=== PATIENT | female | born 1945 | race Hispanic/Latino ===

== ENCOUNTER → 2019-03-18 | Day surgery (SDC) | payer MEDICARE, OTHER ==
[2019-03-14 14:59] LABS: BASOPHILS % 0.4 % (0.0-1.0); EOSINOPHILS # (AUTO) 0.1 (0.0-0.4); EOSINOPHILS % 1.5 % (0.0-6.0); HEMATOCRIT 35.5 % (34.2-44.1); HEMOGLOBIN 11.5 g/dL (12.0-16.0); LYMPHOCYTES # (AUTO) 1.2 (1.0-3.2); LYMPHOCYTES % 15.6 % (18.0-39.1); MEAN CORPUSCULAR HEMOGLOBIN 28.6 pg (28-32); MEAN CORPUSCULAR HGB CONC 32.4 g/dL (31-35); MEAN CORPUSCULAR VOLUME 88.3 fL (81-99); MONOCYTES # (AUTO) 0.5 (0.2-0.8); MONOCYTES % 7.1 % (4.4-11.3); NEUTROPHILS # (AUTO) 5.5 (2.1-6.9); NEUTROPHILS % 75.1 % (38.7-80.0); PLATELET COUNT 246 x10e3/uL (140-360); RED BLOOD COUNT 4.02 x10e6/uL (3.6-5.1); RED CELL DISTRIBUTION WIDTH 14.7 % (11.7-14.4)
[~2019-03-18] MED LIST: ASPIR 8181 MG PO; ATORVASTATIN CA20 MG PO; BACLOFEN PO; BACLOFEN10 MG PO; CARVEDILOL12.5 MG PO; CARVEDILOL3.125 MG PO; CLOPIDOGREL75 MG PO; FAMOTIDINE20 MG PO; FENTANYL CITRATE/PF 100MCG/2 ML INJ ONE; LANTUS 3ML100 UNITS/ INJ; MELOXICAM7.5 MG PO; METFORMIN HCL500 MG PO; MIDAZOLAM HCL 2 MG/2 ML VIAL ONE; MYRBETRIQ; NEXIUM40 MG PO; NITROGLYCERIN0.4 MG SL; NOVOLOG100 UNIT/1 INJ; OLMESARTAN MEDOXOMIL PO; PROPOFOL IV EMULSION 10 MG/ML 50 ML VIAL ONE; SERTRALINE HCL50 MG PO
--- OUTSIDE RECORDS SUMMARY | 2019-03-18 07:21 | XMS REPORT | Continuity of Care Document ---
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 [facility], [facility] Curiel, [facility] CORONARY ARTERY DISEASE, S/P PTCA Active 07/31/2014 Condition 02/02/2015 [facility] ABN STRESS TEST Active 07/07/2014 [facility] ANGINA - STABLE Active 06/10/2014 Condition 02/02/2015 [facility] DIABETES MELLITUS - TYPE II - UNCONTROLLED Active 06/10/2014 Condition 02/02/2015 [facility] HYPERTENSION - BENIGN ESSENTIAL Active 06/10/2014 Condition 02/02/2015 [facility] Angina1 Active 06/10/2014 Problem 03/02/2019 Data migrated from [employer] on 02/16/15. [facility], CELESTE Curiel, [facility] Benign hypertension2 Active 06/10/2014 Problem 03/02/2019 Data migrated from [employer] on 02/16/15. [facility], CELESTE Curiel,REINA [facility] Type II diabetes mellitus uncontrolled4 Active 06/10/2014 Problem 03/02/2019 Data migrated from [employer] on 02/16/15. [facility],REINA Curiel,[facility] Angina associated with type 2 diabetes mellitus Resolved Problem 03/02/2019 [facility], CELESTE Curiel, [facility] Atypical angina Active Problem 03/02/2019 [facility], CELESTE [place], [facility] Coronary artery disease Active Problem 03/02/2019 [facility], CELESTE [place], [facility] Diabetes mellitus Active Problem 03/02/2019 [facility], OPID [facility], [facility] Diabetes Resolved Problem 03/02/2019 [facility], DEBBYD [facility], [facility] Hypercholesterolemia Active Problem 03/02/2019 [facility], OPID [facility], [facility] Hyperlipidemia Resolved Problem 03/02/2019 [facility], CELESTE [place], [facility] Hypertension Active Problem 03/02/2019 [facility], CELESTE [place], [facility] Morbid obesity Active Problem 03/02/2019 [facility], CELESTE Curiel, [facility] Osteoarthritis Resolved Problem 03/02/2019 [facility], CELESTE [place], [facility] ABN CARDIOVASC STUDY NEC Active [facility] Medications Medication Details Route Status Patient Instructions Ordering Provider Order Date Source olmesartan 40 mg oral tablet 40 mg=1 tab, PO, Daily, # 30 tab, 0 Refill(s) Active 08/12/2018 [facility] Metformin hydrochloride 500 MG Oral Tablet 500 mg=1 tab, PO, BID, 0 Refill(s) Active 08/12/2018 [facility] carvedilol 12.5 mg oral tablet See Instructions, # 180 tab, TAKE 1 TABLET BY MOUTH TWICE DAILY, Pharmacy: [id number] No Longer Active 07/10/2018 [facility] carvedilol 12.5 mg oral tablet See Instructions, # 180 tab, Refill(s) 2, NEREIDA ANN TABLETA ORALMENTE DOS VECES AL JOSE, Pharmacy: [facility] Active 01/11/2018 [facility] atorvastatin 40 mg oral tablet 40 mg=1 tab, PO, Bedtime, # 30 tab, 0 Refill(s) Active 12/31/2017 [facility] Caltrate 600 + D 1 tab, PO, BID, 0 Refill(s) Active 12/31/2017 [facility] Metformin hydrochloride 1000 MG Oral Tablet 1,000 mg=1 tab, PO, BID-Meals, # 30 tab, 0 Refill(s) Active 12/31/2017 [facility] cinnamon 500 mg oral capsule 1,000 mg=2 cap, PO, BID, # 100 cap, 0 Refill(s) Active 12/31/2017 [facility] DULoxetine 30 mg oral delayed release capsule 30 mg=1 cap, PO, Daily, # 30 cap, 0 Refill(s) Active 12/31/2017 [facility] Glucosamine 1,500 mg, Route: PO, Daily, Dosing Weight 91.364, kg, Start date: 12/12/14 9:00:00, Duration: 30 day, Stop date: 01/10/15 9:00:00 No Longer Active 12/12/2014 [facility] Nexium 40 mg, Route: PO, Drug form: ECCAP, Daily, Dosing Weight 91.364, kg, Start date: 12/12/14 9:00:00, Duration: 30 day, Stop date: 01/10/15 9:00:00 No Longer Active 12/12/2014 [facility] Colchicine 0.6 MG Oral Tablet [Colcrys] 0.6 mg, 1 tab, Route: PO, Drug form: TAB, Daily, Dosing Weight 91.364, kg, Start date: 12/12/14 9:00:00, Duration: 30 day, Stop date: 01/10/15 9:00:00 No Longer Active 12/12/2014 [facility] clopidogrel 75 mg, 1 tab, Route: PO, Drug form: TAB, Daily, Dosing Weight 91.364, kg, Start date: 12/12/14 9:00:00, Duration: 30 day, Stop date: 01/10/15 9:00:00Notes: (Same As: Plavix) No Longer Active 12/12/2014 [facility] Aspirin 81 mg, 1 tab, Route: PO, Drug form: CHEWTAB, Daily, Dosing Weight 91.364, kg, Start date: 12/12/14 9:00:00, Duration: 30 day, Stop date: 01/10/15 9:00:00Notes: Take with food. No Longer Active 12/12/2014 [facility] Diovan 160 mg, 1 tab, Route: PO, Drug form: TAB, Daily, Dosing Weight 91.364, kg, Start date: 12/12/14 9:00:00, Duration: 30 day, Stop date: 01/10/15 9:00:00Notes: Same as Diovan No Longer Active 12/12/2014 [facility] Sertraline 50 mg, 1 tab, Route: PO, Drug form: TAB, Daily, Dosing Weight 91.364, kg, Start date: 12/12/14 9:00:00, Duration: 30 day, Stop date: 01/10/15 9:00:00Notes: (Same as: Zoloft) No Longer Active 12/12/2014 [facility] multivitamin with iron Route: PO, Drug Form: TAB, Dosing Weight 91.364, kg, Daily, Start date: 12/12/14 9:00:00, Duration: 30 day, Stop date: 01/10/15 9:00:00 No Longer Active 12/12/2014 [facility] multivitamin 1 tab, Route: PO, Drug Form: TAB, Dosing Weight 91.364, kg, Daily, Start date: 12/12/14 9:00:00, Duration: 30 day, Stop date: 01/10/15 9:00:00Notes: (Same as:Thera) Take with food. No Longer Active 12/12/2014 [facility] meloxicam 15 mg, 2 tab, Route: PO, Drug form: TAB, Daily, Dosing Weight 91.364, kg, Start date: 12/12/14 9:00:00, Duration: 30 day, Stop date: 01/10/15 9:00:00Notes: (Same as: Mobic) No Longer Active 12/12/2014 [facility] Loratadine 10 mg, 1 tab, Route: PO, Drug form: TAB, Daily, Dosing Weight 91.364, kg, Start date: 12/12/14 9:00:00, Duration: 30 day, Stop date: 01/10/15 9:00:00Notes: 1 hr before meals (Same as: Claritin) No Longer Active 12/12/2014 [facility] Protonix 40 mg, 1 tab, Route: PO, Drug form: ECTAB, Before Breakfast, Start date: 12/12/14 7:30:00, Duration: 30 day, Stop date: 01/10/15 7:30:00Notes: Tablet should not be chewed or crushed. (Same as: Protonix) No Longer Active 12/12/2014 [facility] Lantus Route: SUB-Q, Bedtime, Dosing Weight 91.364, kg, Start date: 12/11/14 21:00:00, Duration: 30 day, Stop date: 01/09/15 21:00:00 Inactive 12/12/2014 [facility] atorvastatin 20 mg, 1 tab, Route: PO, Drug form: TAB, Bedtime, Dosing Weight 91.364, kg, Start date: 12/11/14 21:00:00, Duration: 30 day, Stop date: 01/09/15 21:00:00Notes: (Same As: Lipitor) Inactive 12/12/2014 [facility] Levemir FlexPen 40 unit, 0.4 mL, Route: SUB-Q, Drug form: INJ, Bedtime, Start date: 12/11/14 21:00:00, Duration: 30 day, Stop date: 01/09/15 21:00:00Notes: Same as Levemir Do not hold insulin without contacting prescriber "single patient use only" Inactive 12/12/2014 [facility] Humalog 20 unit, Route: SUB-Q, BID, Dosing Weight 91.364, kg, Start date: 12/11/14 17:00:00, Duration: 30 day, Stop date: 01/10/15 9:00:00 Inactive 12/11/2014 [facility] carvedilol 3.125 mg, 1 tab, Route: PO, Drug form: TAB, BID, Dosing Weight 91.364, kg, Start date: 12/11/14 17:00:00, Duration: 30 day, Stop date: 01/10/15 9:00:00Notes: Give with food. (Same As: Coreg) Inactive 12/11/2014 [facility] NovoLOG FlexPen 20 unit, 0.2 mL, Route: SUB-Q, Drug form: SOLN, BID, Start date: 12/11/14 17:00:00, Duration: 30 day, Stop date: 01/10/15 9:00:00Notes: Roll in palms of hands gently; Do not shake vigorously. (Same as: NovoLOG) "single patient use only" Stable for 28 days at room temperature. Expires in days from Date Inactive 12/11/2014 [facility] Al hydroxide/Mg hydroxide/simethicone 200 mg-200 mg-20 mg/5 mL oral suspension 30 mL, Route: PO, Drug Form: SUSP, Dosing Weight 91.364, kg, Q12H, PRN Indigestion, Start date: 12/11/14 10:57:00, Duration: 30 day, Stop date: 01/10/15 10:56:00Notes: (aluminum hydroxide-magnesium hyd-simethicone [phone]/5ml 30 ml ud VINCE) Inactive 12/11/2014 [facility] Acetaminophen 325 MG / Hydrocodone Bitartrate 5 MG Oral Tablet 1 tab, Route: PO, Drug Form: TAB, Dosing Weight 91.364, kg, Q4H, PRN Pain Score 1-5, Start date: 12/11/14 10:57:00, Duration: 30 day, Stop date: 01/10/15 10:56:00Notes: (Same as: [facility] 325/5) Do not exceed 4gm/day of acetaminophen. Inactive 12/11/2014 [facility] Morphine 2 mg, 1 mL, Route: IVP, Drug form: INJ, Q15Min, Dosing Weight 91.364, kg, PRN Chest Pain, Start date: 12/11/14 10:57:00, Duration: 2 doses or times, Stop date: Limited # of timesNotes: (Same as:MORPh ine Sulfate) Inactive 12/11/2014 [facility] Nitroglycerin 0.4 mg, 1 tab, Route: SL, Drug form: TAB, Q5Min, Dosing Weight 91.364, kg, PRN Chest Pain, Start date: 12/11/14 10:57:00, Duration: 3 doses or times, Stop date: Limited # of timesNotes: (Same as:Nitr oquick, Nitrostat) "Do Not Crush" Sublingual tablet Inactive 12/11/2014 [facility] Acetaminophen 650 mg, 2 tab, Route: PO, Drug form: TAB, Q4H, Dosing Weight 91.364, kg, PRN Headache 1-5, Start date: 12/11/14 10:57:00, Duration: 30 day, Stop date: 01/10/15 10:56:00Notes: Do not exceed 4 gm/day. (Same as: Tylenol) Inactive 12/11/2014 [facility] Ondansetron 4 mg, 1 tab, Route: PO, Drug form: TAB, Q8H, Dosing Weight 91.364, kg, PRN Nausea & Vomiting, Start date: 12/11/14 10:57:00, Duration: 30 day, Stop date: 01/10/15 10:56:00Notes: (Same as: Zofran) Inactive 12/11/2014 [facility] Temazepam 15 mg, 1 cap, Route: PO, Drug form: CAP, Bedtime, Dosing Weight 91.364, kg, PRN Insomnia, Start date: 12/11/14 10:57:00, Duration: 30 day, Stop date: 01/10/15 10:56:00Notes: (Same As: Restoril) Inactive 12/11/2014 [facility] Sodium Chloride 0.154 MEQ/ML Injectable Solution 500 mL, Rate: 125 ml/hr, Infuse over: 4 hr, Route: IV, Dosing Weight 91.364 kg, Total Volume: 500, Start date: 12/11/14 10:57:00, Duration: 30 day, Stop date: 01/10/15 10:56:00 Inactive 12/11/2014 [facility] 8 HR Acetaminophen 650 MG Extended Release Tablet [Tylenol] 650 mg=1 tab, PO, PRN, 0 Refill(s) Active 12/11/2014 [facility] Iron-150 oral tablet 325 mg, PO, Daily, 0 Refill(s) Active 12/11/2014 [facility] Systane Eye Drops 1 gtt, BOTH EYES, Daily, 0 Refill(s) Active 12/11/2014 [facility] Glucosamine 1,500 mg, PO, Daily, 0 Refill(s) Active 12/11/2014 [facility] Humalog 20 unit, SUB-Q, BID, 0 Refill(s) Active 12/11/2014 [facility] Aspirin Low Dose 81 mg oral tablet =1 tab, PO, Daily, 0 Refill(s) Active 12/11/2014 [facility] Lantus 40 units, SUB-Q, Bedtime, 0 Refill(s) Active 12/11/2014 [facility] multivitamin 1 tab, PO, Daily, 0 Refill(s) Active 12/11/2014 [facility] meloxicam 15 mg oral tablet 15 mg=1 tab, PO, Daily, 0 Refill(s) Inactive 12/11/2014 [facility] loratadine 10 mg oral tablet 10 mg=1 tab, PO, Daily, 0 Refill(s) Active 12/11/2014 [facility] Esomeprazole 40 MG Enteric Coated Capsule [Nexium] 40 mg=1 cap, PO, Daily, 0 Refill(s) Active 12/11/2014 [facility] clopidogrel 75 mg oral tablet 75 mg=1 tab, PO, Daily, 0 Refill(s) Active 12/11/2014 [facility] valsartan 160 MG Oral Tablet [Diovan] 160 mg=1 tab, PO, Daily, 0 Refill(s) Active 12/11/2014 [facility] Colchicine 0.6 MG Oral Tablet [Colcrys] 0.6 mg=1 tab, PO, Daily, 0 Refill(s) Active 12/11/2014 [facility] carvedilol 3.125 mg oral tablet 3.125 mg=1 tab, PO, BID, 0 Refill(s) Active 12/11/2014 [facility] sertraline 50 mg oral tablet 50 mg=1 tab, PO, Daily, 0 Refill(s) Active 12/11/2014 [facility] atorvastatin 20 mg oral tablet 20 mg=1 tab, PO, Bedtime, 0 Refill(s) Active 12/11/2014 [facility] Acetaminophen 300 MG / Hydrocodone Bitartrate 5 MG Oral Tablet [Vicodin 5/300] 1 tab, PO, PRN, 0 Refill(s) Active 12/11/2014 [facility] CLOPIDOGREL BISULFATE 75 MG TABS Take 4 tablets today, then one daily Active 07/31/[facility] ASPIRIN EC LOW DOSE 81 MG TBEC 1 tablet daily Active 07/22/2014 [facility] atorvastatin 20 mg oral tablet 20 mg=1 tab, PO, Bedtime, # 60 tab, 3 Refill(s) Active 07/15/2014 [facility] carvedilol 3.125 mg oral tablet 3.125 mg=1 tab, PO, Q12H, # 120 tab, 3 Refill(s) Active 07/15/2014 [facility] valsartan 160 mg oral tablet 160 mg=1 tab, PO, Daily, # 60 tab, 3 Refill(s) Active 07/15/2014 [facility] Diovan 160 mg, 1 tab, Route: PO, Drug form: TAB, Daily, Dosing Weight 86.364, kg, Start date: 07/15/14 9:00:00, Duration: 30 day, Stop date: 08/13/14 9:00:00Notes: Same as Diovan Inactive 07/15/2014 [facility] clopidogrel 75 mg, 1 tab, Route: PO, Drug form: TAB, Daily, Dosing Weight 86.364, kg, Start date: 07/15/14 9:00:00, Duration: 30 day, Stop date: 08/13/14 9:00:00Notes: (Same As: Plavix) Inactive 07/15/2014 [facility] Aspirin 81 MG Enteric Coated Tablet 81 mg, 1 tab, Route: PO, Drug form: ECTAB, Daily, Dosing Weight 86.364, kg, Start date: 07/15/14 9:00:00, Duration: 30 day, Stop date: 08/13/14 9:00:00Notes: Do not crush or chew. (Same As: Ecotrin) Inactive 07/15/2014 [facility] Osteo Bi-Flex Route: PO, Dosing Weight 86.364, kg, Daily, Start date: 07/15/14 9:00:00, Duration: 30 day, Stop date: 08/13/14 9:00:00 Inactive 07/15/2014 [facility] glucagon 1 mg, Route: IV, Drug form: PDR/INJ, PRN, PRN Blood Glucose Results, Start date: 07/14/14 22:18:00, Duration: 30 day, Stop date: 08/13/14 21:17:00 No Longer Active 07/15/2014 [facility] Dextrose 50% in Water IV 50 mL, Route: IVP, Start date: 07/14/14 22:18:00, Duration: 30 day, Stop date: 08/13/14 21:17:00, PRN Blood Glucose Results No Longer Active 07/15/2014 [facility] NovoLOG FlexPen 10 unit, 0.1 mL, Route: SUB-Q, Drug form: SOLN, Sliding Scale, PRN Blood Glucose Results, Start date: 07/14/14 22:18:00, Duration: 30 day, Stop date: 08/13/14 21:17:00Notes: Roll in palms of hands ge ntly; Do not shake vigorously. (Same as: NovoLOG) "single patient use only" Stable for 28 days at room temperature. Expires in days from Date No Longer Active 07/15/2014 [facility] carvedilol 3.125 mg, 1 tab, Route: PO, Drug form: TAB, Q12H, Dosing Weight 86.364, kg, Start date: 07/14/14 21:00:00, Duration: 30 day, Stop date: 08/13/14 9:00:00Notes: Give with food. (Same As: Coreg) No Longer Active 07/15/2014 [facility] atorvastatin 20 mg, 1 tab, Route: PO, Drug form: TAB, Bedtime, Dosing Weight 86.364, kg, Start date: 07/14/14 21:00:00, Duration: 30 day, Stop date: 08/12/14 21:00:00Notes: (Same As: Lipitor) No Longer Active 07/15/2014 [facility] Tylenol 650 mg, 2 tab, Route: PO, Drug form: TAB, Q4H, Dosing Weight 86.364, kg, PRN Fever, Start date: 07/14/14 19:54:00, Stop date: 08/13/14 19:53:00Notes: Do not exceed 4 gm/day. (Same as: Tylenol) Inactive 07/15/2014 [facility] Aspirin 81 MG Enteric Coated Tablet 81 mg, PO, Daily, 0 Refill(s) Active 07/14/2014 [facility] Sodium Chloride 0.9% IV 250 mL, Route: IVPB, Start date: 07/14/14 17:22:00, Duration: 30 day, Stop date: 08/13/14 16:21:00, PRN Line Flush No Longer Active 07/14/2014 [facility] BD Normal Saline Flush 10 mL, Route: IVP, Drug Form: INJ, PRN, PRN Line Flush, Start date: 07/14/14 17:22:00, Duration: 30 day, Stop date: 08/13/14 16:21:00Notes: (Same as: BD Posiflush) No Longer Active 07/14/2014 [facility] clopidogrel 75 mg oral tablet 75 mg, PO, Daily, # 60 caplet, 3 Refill(s) Active 07/14/2014 [facility] Morphine 2 mg, 1 mL, Route: IVP, Drug form: INJ, Q15Min, Dosing Weight 86.364, kg, PRN Chest Pain, Start date: 07/14/14 17:19:00, Duration: 2 doses or times, Stop date: Limited # of timesNotes: (Same as:MORPh ine Sulfate) No Longer Active 07/14/2014 [facility] Acetaminophen 650 mg, 2 tab, Route: PO, Drug form: TAB, Q4H, Dosing Weight 86.364, kg, PRN Pain/Fever, Start date: 07/14/14 17:19:00, Stop date: 08/13/14 17:18:00Notes: Do not exceed 4 gm/day. (Same as: Tylenol) No Longer Active 07/14/2014 [facility] Acetaminophen 325 MG / Hydrocodone Bitartrate 5 MG Oral Tablet 1 tab, Route: PO, Drug Form: TAB, Dosing Weight 86.364, kg, Q4H, PRN Pain Score 1-5, Start date: 07/14/14 17:19:00, Duration: 30 day, Stop date: 08/13/14 17:18:00Notes: (Same as: [facility] 325/5) Do not exceed 4gm/day of acetaminophen. No Longer Active 07/14/2014 [facility] Temazepam 15 mg, 1 cap, Route: PO, Drug form: CAP, Bedtime, Dosing Weight 86.364, kg, PRN Insomnia, Start date: 07/14/14 17:19:00, Duration: 30 day, Stop date: 08/13/14 17:18:00Notes: (Same As: Restoril) No Longer Active 07/14/2014 [facility] Ondansetron 4 mg, 1 tab, Route: PO, Drug form: TAB, Q8H, Dosing Weight 86.364, kg, PRN Nausea & Vomiting, Start date: 07/14/14 17:19:00, Duration: 30 day, Stop date: 08/13/14 17:18:00Notes: (Same as: Zofran) No Longer Active 07/14/2014 [facility] Nitroglycerin 0.4 mg, 1 tab, Route: SL, Drug form: TAB, Q5Min, Dosing Weight 86.364, kg, PRN Chest Pain, Start date: 07/14/14 17:19:00, Duration: 3 doses or times, Stop date: Limited # of timesNotes: (Same as:Nitroqu ick, Nitrostat) "Do Not Crush" Sublingual tablet No Longer Active 07/14/2014 [facility] Sodium Chloride 0.154 MEQ/ML Injectable Solution 1,000 mL, Rate: 100 ml/hr, Infuse over: 10 hr, Route: IV, Dosing Weight 86.364 kg, Total Volume: 1,000, Start date: 07/14/14 17:19:00, Duration: 30 day, Stop date: 08/13/14 17:18:00 No Longer Active 07/14/2014 [facility] Osteo Bi-Flex See Instructions, 1, 0 Refill(s)Special Instructions: 1 Active 07/14/2014 [facility] Caltrate 600 + D 1 tab, PO, Daily, 0 Refill(s) Active 07/14/2014 [facility] 3 ML Insulin Glargine 100 UNT/ML Prefilled Syringe [Lantus] 10 unit, SUB-Q, Daily, # 10 ml, 0 Refill(s) Active 07/14/2014 [facility] Insulin Glargine 100 UNT/ML Injectable Solution [Lantus] 0 Refill(s) No Longer Active 07/14/2014 [facility] atorvastatin 20 mg oral tablet 20 mg=1 tab, PO, Bedtime, # 30 tab, 0 Refill(s) No Longer Active 07/14/2014 [facility] Unknown Home Medication 50, Daily, Refill(s) 0 No Longer Active 07/14/2014 [facility] Insulin, Aspart, Human 100 UNT/ML Injectable Solution [NovoLog] 40 units, TID-Before Meals, 0 Refill(s) Active 07/14/2014 [facility] Acetaminophen 325 MG Oral Tablet [Tylenol] 650 mg=2 tab, PO, Q4H, Fever, # 120 tab, 0 Refill(s) Active 07/14/2014 [facility] valsartan 160 MG Oral Tablet [Diovan] 160 mg=1 tab, PO, Daily, # 30 tab, 0 Refill(s) No Longer Active 07/14/2014 [facility] carvedilol 3.125 mg oral tablet 3.125 mg=1 tab, PO, Q12H, # 60 tab, 0 Refill(s) No Longer Active 07/14/2014 [facility] CARVEDILOL 3.125 MG TABS 1 tablet twice daily Active 06/10/2014 [facility] IMDUR 30 MG [id number] 1 tablet daily No Longer Active 06/10/2014 [facility] ASPIRIN EC LOW DOSE 81 MG TBEC 1 tablet daily No Longer Active 06/10/2014 [facility] CARVEDILOL 3.125 MG TABS 1 tablet twice daily Active 06/10/2014 [facility] TRAMADOL HCL 50 MG TABS 1 tab every 8 hrs Active 05/22/2014 [facility] SERTRALINE HCL 50 MG TABS 1 tab daily Active 05/22/2014 [facility] AZITHROMYCIN 500 MG TABS 1 tab daily No Longer Active 05/22/2014 [facility] MELOXICAM 15 MG TABS 1 tab daily Active 05/22/2014 [facility] CALTRATE 600 TABS 3 tabs daily Active 05/22/2014 [facility] DIOVAN 160 MG TABS 1 tab daily Active 05/22/2014 [facility] OSTEO BI-FLEX ADV DOUBLE ST TABS 1 tab daily Active 05/22/2014 [facility] NOVOLOG FLEXPEN 100 UNIT/ML SOPN as directed Active 05/22/2014 [facility] LANTUS SOLOSTAR 100 UNIT/ML SOPN as directed Active 05/22/2014 [facility] LOSARTAN POTASSIUM 50 MG TABS 1 tab daily No Longer Active 05/22/2014 [facility] ATORVASTATIN CALCIUM 20 MG TABS 1 tablet daily Active 05/22/2014 [facility] TRAMADOL HCL 50 MG TABS 1 tab every 8 hrs Active 05/22/2014 [facility] SERTRALINE HCL 50 MG TABS 1 tab daily Active 05/22/2014 [facility] LANTUS SOLOSTAR 100 UNIT/ML SOPN as directed Active 05/22/2014 [facility] LOSARTAN POTASSIUM 50 MG TABS 1 tab daily No Longer Active 05/22/2014 [facility] TRAMADOL HCL 50 MG TABS 1 tab every 8 hrs Active 05/22/2014 [facility] MELOXICAM 15 MG TABS 1 tab daily Active 05/22/2014 [facility] TRAMADOL HCL 50 MG TABS 1 tab every 8 hrs Active 05/22/2014 [facility] LANTUS SOLOSTAR 100 UNIT/ML SOPN as directed Active 05/22/2014 [facility] ATORVASTATIN CALCIUM 20 MG TABS 1 tablet daily Active 05/22/2014 [facility] Allergies, Adverse Reactions, Alerts Substance Category Reaction Severity Reaction type Status Date Reported Comments Source penicillins Assertion Drug allergy Active [facility] Immunizations No Data Provided for This Section Results Order Name Results Value Reference Range Date Interpretation Comments Source CHEM PANEL eGFR 87 12/11/2014 <sup>1</sup>Result Comment: The eGFR is calculated using the CKD-EPI formula. In most young, healthy individuals the eGFR will be >90 mL/min/1.73m2. The eGFR declines with age. An eGFR of 60-89 may be normal in some populations, particularly the elderly, for whom the CKD-EPI formula has not been extensively validated. Use of the eGFR is not recommended in the following populations:& lt;br/>
Individuals with unstable creatinine concentrations, including patients and those with serious co-morbid conditions.

Patients with extremes in muscle mass or diet.

The data above are obtained from the National Kidney Disease Education Program (NKDEP) which additionally recommends that when the eGFR is used in patients with extremes of body mass index for purposes of drug dosing, the eGFR should be multiplied by the estimated BMI. [facility] Creatinine Lvl 0.7 0.5 - 1.4 12/11/2014 [facility] eGFR 92 12/11/2014 <sup>2</sup>Result Comment: The eGFR is calculated using the CKD-EPI formula. In most young, healthy individuals the eGFR will be >90 mL/min/1.73m2. The eGFR declines with age. An eGFR of 60-89 may be normal in some populations, particularly the elderly, for whom the CKD-EPI formula has not been extensively validated. Use of the eGFR is not recommended in the following populations:& lt;br/>
Individuals with unstable creatinine concentrations, including patients and those with serious co-morbid conditions.

Patients with extremes in muscle mass or diet.

The data above are obtained from the National Kidney Disease Education Program (NKDEP) which additionally recommends that when the eGFR is used in patients with extremes of body mass index for purposes of drug dosing, the eGFR should be multiplied by the estimated BMI. [facility]M [facility] Hemoglobin 11.2 12.0 - 16.0 12/11/2014 [facility] CHEM PANEL POC Hematocrit 33.0 36.0 - 48.0 12/11/2014 [facility] CHEM PANEL POC AGAP 21.0 10.0 - 20.0 12/11/2014 [facility] CHEM PANEL [facility]OC Glucose 172 70 - 99 12/11/2014 [facility]M [facility] Ion Ca 1.21 1.05 - 1.25 12/11/2014 [facility] CHEM PANEL [facility]OC BUN 16 7 - 22 12/11/2014 [facility] CHEM PANEL POC Creatinine 0.6 0.5 - 1.4 12/11/2014 [facility] CHEM PANEL [facility]OC Sodium 134 135 - 145 12/11/2014 [facility] CHEM PANEL [facility]OC Potassium 4.2 3.5 - 5.1 12/11/2014 [facility]M PANEL POC Chloride 95 95 - 109 12/11/2014 [facility] Carbon Dioxide 24 24 - 32 12/11/2014 [facility] HEMATOLOGY POC INR 1.1 0.9 - 1.2 12/11/2014 [facility] HEMATOLOGY POC PT 12.8 12.0 - 14.7 12/11/2014 [facility] CHEM PANEL Creatinine Lvl 0.7 0.5 - 1.4 07/15/2014 [facility] CHEM PANEL Glucose Lvl 134 70 - 99 07/15/2014 <sup>4</sup>Interpretive Data: Adult reference range values reflect the clinical guidelines
of the [place] [employer]. [facility] CHEM PANEL BUN 12 7 - 22 07/15/2014 [facility] CHEM PANEL Calcium Lvl 8.9 8.5 - 10.5 07/15/2014 [facility] CHEM PANEL Chloride Lvl 102 95 - 109 07/15/2014 [facility] CHEM PANEL CO2 26 24 - 32 07/15/2014 [facility] CHEM PANEL Potassium Lvl 4.1 3.5 - 5.1 07/15/2014 [facility] CHEM PANEL eGFR 87 07/15/2014 <sup>1</sup>Result Comment: The eGFR is calculated using the CKD-EPI formula. In most young, healthy individuals the eGFR will be >90 mL/min/1.73m2. The eGFR declines with age. An eGFR of 60-89 may be normal in some populations, particularly the elderly, for whom the CKD-EPI formula has not been extensively validated. Use of the eGFR is not recommended in the following populations:& lt;br/>
Individuals with unstable creatinine concentrations, including patients and those with serious co-morbid conditions.

Patients with extremes in muscle mass or diet.

The data above are obtained from the National Kidney Disease Education Program (NKDEP) which additionally recommends that when the eGFR is used in patients with extremes of body mass index for purposes of drug dosing, the eGFR should be multiplied by the estimated BMI. [facility] CHEM PANEL Sodium Lvl 138 135 - 145 07/15/2014 [facility] CHEM PANEL AGAP 14.1 10.0 - 20.0 07/15/2014 [facility] HEMATOLOGY Basophils # 0.0 0.0 - 0.2 07/15/2014 [facility] Eosinophils # 0.2 0.0 - 0.5 07/15/2014 [facility] Monocytes # 0.5 0.0 - 0.8 07/15/2014 [facility] Lymphocytes # 1.4 1.0 - 5.5 07/15/2014 [facility] Segs-Bands # 5.1 1.5 - 8.1 07/15/2014 [facility] Monocytes 7.2 2.0 - 12.0 07/15/2014 [facility] Eosinophils 3.4 0.0 - 4.0 07/15/2014 [facility] Basophils 0.4 0.0 - 1.0 07/15/2014 [facility] Segs 69.8 45.0 - 75.0 07/15/2014 [facility] Lymphocytes 19.2 20.0 - 40.0 07/15/2014 [facility] MPV 7.6 7.4 - 10.4 07/15/2014 [facility] Platelet 238 133 - 450 07/15/2014 [facility] MCHC 32.7 32.0 - 36.0 07/15/2014 [facility] RDW 16.6 11.5 - 14.5 07/15/2014 [facility] MCV 78.2 80.0 - 98.0 07/15/2014 [facility] MCH 25.6 27.0 - 31.0 07/15/2014 [facility] WBC 7.3 3.7 - 10.4 07/15/2014 [facility] RBC 4.32 4.20 - 5.40 07/15/2014 [facility] Hgb 11.1 12.0 - 16.0 07/15/2014 [facility] HEMATOLOGY Hct 33.8 36.0 - 48.0 07/15/2014 [facility] CHEM PANEL eGFR 92 07/14/2014 <sup>2</sup>Result Comment: The eGFR is calculated using the CKD-EPI formula. In most young, healthy individuals the eGFR will be >90 mL/min/1.73m2. The eGFR declines with age. An eGFR of 60-89 may be normal in some populations, particularly the elderly, for whom the CKD-EPI formula has not been extensively validated. Use of the eGFR is not recommended in the following populations:& lt;br/>
Individuals with unstable creatinine concentrations, including patients and those with serious co-morbid conditions.

Patients with extremes in muscle mass or diet.

The data above are obtained from the National Kidney Disease Education Program (NKDEP) which additionally recommends that when the eGFR is used in patients with extremes of body mass index for purposes of drug dosing, the eGFR should be multiplied by the estimated BMI. [facility] CHEM PANEL Calcium Lvl 8.3 8.5 - 10.5 07/14/2014 [facility] CHEM PANEL CO2 25 24 - 32 07/14/2014 [facility] CHEM PANEL AGAP 11.5 10.0 - 20.0 07/14/2014 [facility] CHEM PANEL Glucose Lvl 122 70 - 99 07/14/2014 <sup>5</sup>Interpretive Data: Adult reference range values reflect the clinical guidelines
of the [place] [employer]. [facility] CHEM PANEL Creatinine Lvl 0.6 0.5 - 1.4 07/14/2014 [facility] CHEM PANEL Sodium Lvl 136 135 - 145 07/14/2014 [facility] CHEM PANEL BUN 11 7 - 22 07/14/2014 [facility] CHEM PANEL Chloride Lvl 103 95 - 109 07/14/2014 [facility] CHEM PANEL Potassium Lvl 3.5 3.5 - 5.1 07/14/2014 [facility] HEMATOLOGY POC Activated Clotting Time 341 07/14/2014 [facility] CHEM PANEL eGFR 92 07/14/2014 <sup>3</sup>Result Comment: The eGFR is calculated using the CKD-EPI formula. In most young, healthy individuals the eGFR will be >90 mL/min/1.73m2. The eGFR declines with age. An eGFR of 60-89 may be normal in some populations, particularly the elderly, for whom the CKD-EPI formula has not been extensively validated. Use of the eGFR is not recommended in the following populations:& lt;br/>
Individuals with unstable creatinine concentrations, including patients and those with serious co-morbid conditions.

Patients with extremes in muscle mass or diet.

The data above are obtained from the National Kidney Disease Education Program (NKDEP) which additionally recommends that when the eGFR is used in patients with extremes of body mass index for purposes of drug dosing, the eGFR should be multiplied by the estimated BMI. [facility] CHEM PANEL POC Potassium 3.9 3.5 - 5.1 07/14/2014 [facility] Sodium 139 135 - 145 07/14/2014 [facility]EL P[facility] Chloride 100 95 - 109 07/14/2014 [facility] P[facility] Hematocrit 35.0 36.0 - 48.0 07/14/2014 [facility]M PANEL POC AGAP 19.0 10.0 - 20.0 07/14/2014 [facility] PANEL POC Hemoglobin 11.9 12.0 - 16.0 07/14/2014 [facility] CHEM PANEL POC Ion Ca 1.20 1.05 - 1.25 07/14/2014 [facility]EL POC Glucose 136 70 - 99 07/14/2014 [facility] CHEM PANEL POC Creatinine 0.6 0.5 - 1.4 07/14/2014 [facility]EL POC BUN 12 7 - 22 07/14/2014 [facility] POC Carbon Dioxide 26 24 - 32 07/14/2014 [facility] HEMATOLOGY POC INR <0.9 0.9 - 1.2 07/14/2014 [facility] POC PT 12.0 - 14.7 07/14/2014 [facility] POC PT 12.0 - 14.7 07/14/2014 [facility] HEMATOLOGY POC INR <0.9 0.9 - 1.2 07/14/2014 [facility] Chemistry CHOLESTEROL 144 - 199 07/13/2014 [facility] TRIGLYCERIDE 251 - 149 07/13/2014 [facility] HDL 41 >=61 07/13/2014 [facility] SODIUM 138 MEQ/L 135 - 145 07/13/2014 [facility] POTASSIUM 4.6 MEQ/L 3.5 - 5.1 07/13/2014 [facility] CREATININE 0.8 0.5 - 1.4 07/13/2014 [facility] BUN 17 7 - 22 07/13/2014 [facility] BUN/CREAT 21 6 - 25 07/13/2014 [facility] ALBUMIN 4.0 3.5 - 5.0 07/13/2014 [facility] CALCIUM 9.2 8.5 - 10.5 07/13/2014 [facility] SGPT (ALT) 20 0 - 65 07/13/2014 [facility] SGOT (AST) 19 0 - 37 07/13/2014 [facility] ALK PHOS 99 39 - 136 07/13/2014 [facility] CHOLESTEROL 144 - 199 07/13/2014 [facility] TRIGLYCERIDE 251 - 149 07/13/2014 [facility] HDL 41 >=61 07/13/2014 [facility] SODIUM 138 MEQ/L 135 - 145 07/13/2014 [facility] POTASSIUM 4.6 MEQ/L 3.5 - 5.1 07/13/2014 [facility] CREATININE 0.8 0.5 - 1.4 07/13/2014 [facility] BUN 17 7 - 22 07/13/2014 [facility] BUN/CREAT 21 6 - 25 07/13/2014 [facility] ALBUMIN 4.0 3.5 - 5.0 07/13/2014 [facility] CALCIUM 9.2 8.5 - 10.5 07/13/2014 [facility] SGPT (ALT) 20 0 - 65 07/13/2014 [facility] SGOT (AST) 19 0 - 37 07/13/2014 [facility] ALK PHOS 99 39 - 136 07/13/2014 [facility] CHOLESTEROL 144 - 199 07/13/2014 [facility] TRIGLYCERIDE 251 - 149 07/13/2014 [facility] HDL 41 >=61 07/13/2014 [facility] LDL 53 - 99 07/13/2014 [facility] SODIUM 138 MEQ/L 135 - 145 07/13/2014 [facility] POTASSIUM 4.6 MEQ/L 3.5 - 5.1 07/13/2014 [facility] CREATININE 0.8 0.5 - 1.4 07/13/2014 [facility] BUN 17 7 - 22 07/13/2014 [facility] BUN/CREAT 21 6 - 25 07/13/2014 [facility] ALBUMIN 4.0 3.5 - 5.0 07/13/2014 [facility] CALCIUM 9.2 8.5 - 10.5 07/13/2014 [facility] SGPT (ALT) 20 0 - 65 07/13/2014 [facility] SGOT (AST) 19 0 - 37 07/13/2014 [facility] ALK PHOS 99 39 - 136 07/13/2014 [facility] CHOLESTEROL 144 - 199 07/13/2014 [facility] TRIGLYCERIDE 251 - 149 07/13/2014 [facility] HDL 41 >=61 07/13/2014 [facility] LDL 53 - 99 07/13/2014 [facility] SODIUM 138 MEQ/L 135 - 145 07/13/2014 [facility] POTASSIUM 4.6 MEQ/L 3.5 - 5.1 07/13/2014 [facility] CREATININE 0.8 0.5 - 1.4 07/13/2014 [facility] BUN 17 7 - 22 07/13/2014 [facility] BUN/CREAT 21 6 - 25 07/13/2014 [facility] ALBUMIN 4.0 3.5 - 5.0 07/13/2014 [facility] CALCIUM 9.2 8.5 - 10.5 07/13/2014 [facility] SGPT (ALT) 20 0 - 65 07/13/2014 [facility] SGOT (AST) 19 0 - 37 07/13/2014 [facility] ALK PHOS 99 39 - 136 07/13/2014 [facility] PT PATIENT 12.8 12.0 - 14.7 07/13/2014 [facility] INR 0.96 0.85 - 1.17 07/13/2014 [facility] PTT PATIENT 35.5 22.9 - 35.8 07/13/2014 [facility] Co[facility] PT PATIENT 12.8 12.0 - 14.7 07/13/2014 [facility] Coagulation INR 0.96 0.85 - 1.17 07/13/2014 [facility] PTT PATIENT 35.5 22.9 - 35.8 07/13/2014 [facility] Co[facility] PT PATIENT 12.8 12.0 - 14.7 07/13/2014 [facility] Coagulation INR 0.96 0.85 - 1.17 07/13/2014 [facility] Coagulation PTT PATIENT 35.5 22.9 - 35.8 07/13/2014 [facility] Coagulation PT PATIENT 12.8 12.0 - 14.7 07/13/2014 [facility] Coagulation INR 0.96 0.85 - 1.17 07/13/2014 [facility] Coagulation PTT PATIENT 35.5 22.9 - 35.8 07/13/2014 [facility] Hematology HGB 12.0 12.0 - 16.0 07/13/2014 [facility] Hematology HCT 36.5 36.0 - 48.0 07/13/2014 [facility] Hematology PLATELETS 262 K/CMM 133 - 450 07/13/2014 [facility] Hematology HGB 12.0 12.0 - 16.0 07/13/2014 [facility] Hematology HCT 36.5 36.0 - 48.0 07/13/2014 [facility] Hematology PLATELETS 262 K/CMM 133 - 450 07/13/2014 [facility] Hematology HGB 12.0 12.0 - 16.0 07/13/2014 [facility] Hematology HCT 36.5 36.0 - 48.0 07/13/2014 [facility] Hematology PLATELETS 262 K/CMM 133 - 450 07/13/2014 [facility] Hematology HGB 12.0 12.0 - 16.0 07/13/2014 [facility] Hematology HCT 36.5 36.0 - 48.0 07/13/2014 [facility] Hematology PLATELETS 262 K/CMM 133 - 450 07/13/2014 [facility] Pathology Reports No Data Provided for This Section Diagnostic Reports Report Value Date Source Shoulder series DX CLINICAL HISTORY: M25.519 Pain in unspecified shoulder - M25.519 Pain in unspecified shoulder AGE: 73 years GENDER: Female TECHNIQUE: Right shoulder radiographs, 3 views. COMPARISON: None FINDINGS: There is no evidence of fracture or dislocation. Osseous mineralization is within normal limits. No lytic or blastic lesions are seen. There is moderate degenerative change in the acromioclavicular joint with mild inferior spurring. IMPRESSION: Moderate acromioclavicular joint osteoarthritis with mild inferior spurring.. 11/28/2018 [facility] Spine lumbar 2 or 3 views DX EXAM: Spine lumbar 2 or 3 views DX DATE: 11/28/2018 2:58 PM CDT. INDICATION: M54.5 Low back pain. COMPARISON: None available. TECHNIQUE: AP, lateral, and coned lateral radiographs of the lumbar spine. FINDINGS: 5 lumbar type, non-rib bearing vertebral bodies are present. There is grade 1 anterolisthesis of L4 on L5 and L5 on S1. Pars defects are seen at L5-S1. There is mild disc space narrowing at L4-L5 and L5-S1. Large anterior osteophytes are seen at approximately the T8-T9 and T9-T10 levels. Vertebral body heights are normal. No acute soft tissue abnormality is identified. IMPRESSION: 1. Pars defects are seen at L5-S1 with grade 1 anterolisthesis of L5 on S1. 2. Minimal grade 1 anterolisthesis of L4 on L5. 3. Mild disc space narrowing at L4-L5 and L5-S1. 11/28/2018 [facility] Breast Mammo Scrn [place] incl CAD MA - BREAST MAMMO SCRN [place] INCL CAD MA BILATERAL DIGITAL SCREENING MAMMOGRAM WITH CAD: 01/02/2017 CLINICAL: Screening. Current study was evaluated with a Computer Aided Detection (CAD) system. Comparison is made to exam dated: 10/20/2015 mammogram - [facility]. The tissue of both breasts is heterogeneously dense, which could obscure detection of small masses. Technologist indicates that the patient was very difficult to position and that these are the best images possible. There are benign calcifications in both breasts. No significant masses, calcifications, or other findings are seen in either breast. There has been no significant interval change. IMPRESSION: BENIGN There is no mammographic evidence of malignancy. A 1 year screening mammogram is recommended. [place]/penrad:01/02/2017 14:15:15 Pipe Fittings Molder: Anna MATUTE(R)(M), [facility] This exam was dictated and interpreted by [id number] for [facility]. letter sent: Normal [facility] Mammogram BI-RADS: 2 Benign 01/02/2017 [facility] Win Knee 3 Views Bilateral DX EXAM: XR BILATERAL KNEES 3 VIEWS DATE: 01/31/2016 1459 hours INDICATION: Chronic pain on both knees COMPARISON: None available TECHNIQUE: AP, lateral and sunrise views of the bilateral knees FINDINGS: No acute fracture or malalignment is identified. Chondrocalcinosis is identified in bilateral knee joints, right greater than left, medial and lateral compartments. At the bilateral knees, lateral aspect patellofemoral joint space narrowing with subarticular cystic change is present. At the left knee, medial compartment joint space narrowing is noted. Bilateral tricompartmental marginal osteophyte formation is small to moderate size. Small left and trace right suprapatellar joint effusions are seen. Multiple suprapatellar enthesophytes are identified at bilateral knee joints right greater than left. IMPRESSION: 1. Left knee tricompartmental osteoarthrosis, severe in the patellofemoral compartment and moderate in the medial compartment. 2. Right knee tricompartmental osteoarthrosis, most notably severe in the patellofemoral compartment. 3. Bilateral medial lateral compartment chondrocalcinosis of the knee joints, right greater than left. 01/31/2016 [facility] Win Digital Mammo Screening [place] MA - DIGITAL MAMMO SCREENING [place] MA BILATERAL DIGITAL SCREENING MAMMOGRAM WITH CAD: 10/20/2015 CLINICAL: Screening. Current study was evaluated with a Computer Aided Detection (CAD) system. No prior exams were available for comparison. The tissue of both breasts is heterogeneously dense, which could obscure detection of small masses. There are benign calcifications in both breasts. No significant masses, calcifications, or other findings are seen in either breast. IMPRESSION: BENIGN There is no mammographic evidence of malignancy. A 1 year screening mammogram is recommended. Glenn Guerrero M.D. Additional Observers: Shelby Bah /penrad:10/21/2015 08:55:03 Pipe Fittings Molder: Anna Holm RT(R)(M), [facility] This exam was dictated and interpreted by [id number] for [facility] Breast [facility]. letter sent: Normal [facility] Mammogram BI-RADS: 2 Benign 10/20/2015 [facility] Win Hand 3 views Bilateral DX EXAM: HAND 3 VIEWS DATE: Order Observation End Time: May 31, 2015 01:35:04 PM INDICATION: Pain. 715.90 Osteoarthrosis, Unspecified Whether Generalized or Localized, Involving Unspecified Site TECHNIQUE: AP, lateral and oblique radiographs of the left hand. COMPARISON: None available FINDINGS: No acute abnormality is identified. No erosive changes identified. Minimal age-related intercarpal joint degenerative changes are present IMPRESSION: No radiograph evidence of polyarticular inflammatory arthropathy. 05/31/2015 [facility] Consultation Notes No Data Provided for This Section Discharge Summaries No Data Provided for This Section History and Physicals No Data Provided for This Section Vital Signs Vital Sign Value Date Comments Source Height 152.4 cm 01/27/2019 [facility] Heart Rate 79 01/27/2019 [facility] Weight 89.545 01/27/2019 [facility] BMI Calculated 38.55 01/27/2019 [facility] Systolic (mm Hg) 114 01/27/2019 [facility] Diastolic (mm Hg) 70 01/27/2019 [facility] Systolic (mm Hg) 103 08/12/2018 [facility] Diastolic (mm Hg) 61 08/12/2018 [facility] Weight 87.045 08/12/2018 [facility] BMI Calculated 37.48 08/12/2018 [facility] Height 152.4 cm 08/12/2018 [facility] BMI Calculated 39.92 12/31/2017 [facility] Height 152.4 cm 12/31/2017 [facility] Weight 92.727 12/31/2017 [facility] Systolic (mm Hg) 131 12/31/2017 [facility] Diastolic (mm Hg) 75 12/31/2017 [facility] Heart Rate 88 12/31/2017 [facility] Weight 198 02/02/2015 [facility] Systolic (mm Hg) 154 02/02/2015 [facility] Diastolic (mm Hg) 59 02/02/2015 [facility] Heart Rate 80 02/02/2015 [facility] Respitory Rate 10 12/11/2014 [facility] Systolic (mm Hg) 156 12/11/2014 [facility] Diastolic (mm Hg) 71 12/11/2014 [facility] Weight 91.364 12/11/2014 [facility] BMI Calculated 36.84 12/11/2014 [facility] Height 157.48 cm 12/11/2014 [facility] Weight 91.364 12/10/2014 [facility] BMI Calculated 39.34 12/10/2014 [facility] Height 152.4 cm 12/10/2014 [facility] Weight 203 11/20/2014 [facility] Systolic (mm Hg) 118 11/20/2014 [facility] Diastolic (mm Hg) 59 11/20/2014 [facility] Heart Rate 66 11/20/2014 [facility] Weight 201 10/30/2014 [facility] Systolic (mm Hg) 158 10/30/2014 [facility] Diastolic (mm Hg) 67 10/30/2014 [facility] Heart Rate 95 10/30/2014 [facility] Weight 190 07/31/2014 [facility] Systolic (mm Hg) 130 07/31/2014 [facility] Diastolic (mm Hg) 70 07/31/2014 [facility] Heart Rate 80 07/31/2014 [facility] Temperature Oral (F) 98.4 F 07/15/2014 [facility] Respitory Rate 20 07/15/2014 [facility] Systolic (mm Hg) 115 07/15/2014 [facility] Heart Rate 67 07/15/2014 [facility] Diastolic (mm Hg) 63 07/15/2014 [facility] Heart Rate 76 07/15/2014 [facility] Temperature Oral (F) 98.3 F 07/15/2014 [facility] Systolic (mm Hg) 134 07/15/2014 [facility] Diastolic (mm Hg) 67 07/15/2014 [facility] Respitory Rate 20 07/15/2014 [facility] Weight 2.517 07/15/2014 [facility] Temperature Oral (F) 98.6 F 07/15/2014 [facility] Heart Rate 69 07/15/2014 [facility] Diastolic (mm Hg) 70 07/15/2014 [facility] Systolic (mm Hg) 138 07/15/2014 [facility] Respitory Rate 18 07/15/2014 [facility] Weight 88.682 07/15/2014 [facility] BMI Calculated 37.18 07/14/2014 [facility] Weight 86.364 07/14/2014 [facility] Height 152.4 cm 07/14/2014 [facility] Weight 196 07/03/2014 [facility] Systolic (mm Hg) 146 07/03/2014 [facility] Diastolic (mm Hg) 80 07/03/2014 [facility] Heart Rate 80 07/03/2014 [facility] Height 59 06/10/2014 [facility] Weight 197 06/10/2014 [facility] Systolic (mm Hg) 144 06/10/2014 [facility] Diastolic (mm Hg) 64 06/10/2014 [facility] Heart Rate 69 06/10/2014 [facility] Encounters Location Location Details Encounter Type Encounter Number Reason For Visit Attending Provider ADM Date DC Date Status Source [facility] Cardiology [place] Office Visit [id number] Kyree Gaitan MD 06/10/2014 06/10/2014 [facility] [place] Office Visit [id number] Kyree Gaitan MD 07/03/2014 07/03/2014 Medical [facility] Cardiology [place] Lab Report [id number] Kyree Gaitan MD 07/13/2014 07/13/2014 [facility] OBS Observation Patient [id number] Kyree Gaitan 07/14/2014 07/15/2014 [facility] Lab Report [id number] Kyree Gaitan MD 07/15/2014 07/15/2014 Medical [facility] Cardiology [place] Office Visit [id number] Kyree Gaitan MD 07/31/2014 07/31/2014 Medical [facility] Cardiology [place] Office Visit [id number] Kyree Gaitan MD 10/30/2014 10/30/2014 Medical [facility] Cardiology [place] Office Visit [id number] Kyree Gaitan MD 11/20/2014 11/20/2014 [facility] Bedded Outpatient [id number] Kyree Gaitan 12/11/2014 12/11/2014 [facility] [place] Office Visit [id number] Kyree Gaitan MD 02/02/2015 02/02/2015 Medical [facility] [place] [facility] [id number] Tio Pichardo 05/31/2015 06/01/2015 [facility] [id number] KYREE GAITAN 08/03/2015 [facility] [id number] KYREE GAITAN 09/21/2015 [facility] [place] [facility] [id number] KYREE GAITAN 10/01/2015 Active [facility]patient [facility] [place] Outpatient [id number] Mike Wahl 10/20/2015 10/21/2015 [facility] [place] Outpatient [id number] NUCLEAR SCAN VISIT 11/22/2015 [facility] [place] Outpatient [id number] NUCLEAR SCAN VISIT 12/13/2015 [facility] [place] Outpatient [id number] NUCLEAR SCAN VISIT 12/27/2015 [facility] [place] Outpatient [id number] KYREE GAITAN 12/27/2015 Active [facility] [place] [facility] [id number] Tio Pichardo 01/31/2016 02/01/2016 [facility] [id number] KADEN RODRÍGUEZ 07/10/2016 [facility] [id number] [facility] 11/21/2016 [facility] [place] [facility] [id number] [facility] 11/23/2016 [facility] [place] [facility] [id number] KYREE GAITAN 01/01/2017 Active [facility] Outpatient [facility] [place] [facility] [id number] Ailyn Berkowitzenez 01/02/2017 01/03/2017 [facility] [place] Outpatient [id number] KYREE GAITAN 07/09/2017 Active [facility] Cardiology [facility] Outside Medical Records [id number] 10/31/2017 11/02/2017 [facility] Outpatient [id number] KYREE GAITAN 12/31/2017 Active [facility] Cardiology [facility] Outpatient [id number] Kyree Gaitan 12/31/2017 01/01/2018 [facility] Group [facility] Cardiology [facility] Phone Message [id number] 01/09/2018 01/11/2018 [facility] Cardiology [facility] Phone Message [id number] 04/25/2018 04/27/2018 [facility] Cardiology [facility] Phone Message [id number] 07/09/2018 07/11/2018 [facility] Outpatient [id number] KYREE GAITAN 08/12/2018 Active [facility] Cardiology [facility] Outpatient [id number] Kyree Gaitan 08/12/2018 08/13/2018 Medical Group [facility] Outpatient Imaging [facility] [id number] Ailyn Argueta 11/28/2018 11/29/2018 [facility] [id number] NURSE VISIT 01/27/2019 [facility] [place] [facility] [id number] NURSE VISIT 01/27/2019 Active [facility] Cardiology [facility] Outpatient [id number] Ailyn Argueta 01/27/2019 01/28/2019 Medical Group [facility] Cardiology [facility] Outpatient [id number] Ailyn Argueta 01/27/2019 01/28/2019 [facility] Cardiology [facility] Ambulatory Pre-Reg [id number] Katerin Shaikh 01/27/2019 01/27/2019 [facility] Procedures Procedure Code Date Perfomer Comments Source Insertion of coronary artery stent [id number] [facility] Insertion of coronary artery stent [id number] [facility] Insertion of coronary artery stent [id number] OPID Quirino Insertion of coronary artery stent [id number] CELE[facility] Curiel Assessment and Plan No Data Provided for This Section Plan of Care No Data Provided for This Section Social History Social History Date Source Social History TypeResponse Smoking Status Never smoker; Concerns about tobacco use in household: No; Exposure to Tobacco Smoke None; Cigarette Smoking Last 365 Days No; Reg Smoking Cessation Counseling No entered on: 01/27/19 01/27/2019 [facility] Social History TypeResponse Smoking Status Never smoker; Concerns about tobacco use in household: No; Exposure to Tobacco Smoke None; Cigarette Smoking Last 365 Days No; Reg Smoking Cessation Counseling No entered on: 08/12/18 08/12/2018 [facility] Curiel Social History TypeResponse Smoking Status Never smoker; Concerns about tobacco use in household: No; Exposure to Tobacco Smoke None; Cigarette Smoking Last 365 Days No; Reg Smoking Cessation Counseling No 01/01/2017 [facility] Social History TypeResponse Smoking Status Never smoker; Exposure to Tobacco Smoke None; Cigarette Smoking Last 365 Days No; Reg Smoking Cessation Counseling No 12/11/2014 [facility] Family History No Data Provided for This Section Advance Directives No Data Provided for This Section Functional Status No Data Provided for This Section
--- OUTSIDE RECORDS SUMMARY | 2019-03-18 07:22 | XMS REPORT | Continuity of Care Document ---
Author Author [facility] Organization [facility] Address Unknown Phone Unavailable Care Team Providers Care Manager Of Human Resources Name Role Phone MD Arnie, Ayan CORDON Unavailable Insurance Providers Payer name Policy type / Coverage type Policy ID Covered green party ID Policy Luis [employer] [place] - TRADITIONAL [facility] (MEDICARE REPLACEME Encounters Encounter Performer Location Date Office Visit Ayan Gaitan MD [facility] Cardiology [address] Jul 31, 2014 Problems Problem Effective Dates Problem Status ANGINA - STABLE Jun 10, 2014 Active DIABETES MELLITUS - TYPE II - UNCONTROLLED Jun 10, 2014 Active HYPERTENSION - BENIGN ESSENTIAL Jun 10, 2014 Active CORONARY ARTERY DISEASE, S/P PTCA Jul 31, 2014 Active Procedures Date Description Comments Jun 10, 2014 smoking status Never smoker Jul 03, 2014 smoking status Never smoker Jul 31, 2014 smoking status Never smoker Medications Medication Instructions Start Date Status TRAMADOL HCL 50 MG TABS 1 tab every 8 hrs May 22, 2014 Active SERTRALINE HCL 50 MG TABS 1 tab daily May 22, 2014 Active AZITHROMYCIN 500 MG TABS 1 tab daily May 22, 2014 Active MELOXICAM 15 MG TABS 1 tab daily May 22, 2014 Active CALTRATE 600 TABS 3 tabs daily May 22, 2014 Active DIOVAN 160 MG TABS 1 tab daily May 22, 2014 Active OSTEO BI-FLEX ADV DOUBLE ST TABS 1 tab daily May 22, 2014 Active NOVOLOG FLEXPEN 100 UNIT/ML SOPN as directed May 22, 2014 Active LANTUS SOLOSTAR 100 UNIT/ML SOPN as directed May 22, 2014 Active LOSARTAN POTASSIUM 50 MG TABS 1 tab daily May 22, 2014 Inactive CARVEDILOL 3.125 MG TABS 1 tablet twice daily Jun 10, 2014 Active ATORVASTATIN CALCIUM 20 MG TABS 1 tablet daily May 22, 2014 Active ASPIRIN EC LOW DOSE 81 MG TBEC 1 tablet daily Jun 10, 2014 Inactive ASPIRIN EC LOW DOSE 81 MG TBEC 1 tablet daily Jul 22, 2014 Active CLOPIDOGREL BISULFATE 75 MG TABS Take 4 tablets today, then one daily Jul 31, 2014 Active IMDUR 30 MG [id number] 1 tablet daily Jun 10, 2014 Inactive Vital Signs Date Description Test Result Jun 10, 2014 height E&M - 8302-2 HEIGHT 59 in Jun 10, 2014 weight E&M - 3141-9 WEIGHT 197 lb Jun 10, 2014 blood pressure, systolic, sitting, right arm BP SYS SIT R 144 null Jun 10, 2014 blood pressure, diastolic, sitting, right arm BP JOSE SIT R 64 mmHg Jun 10, 2014 pulse rate, sitting, right PULSE SIT R 69 /min Jun 10, 2014 blood pressure, systolic - 8480-6 BP SYSTOLIC 144 mm Hg Jun 10, 2014 pulse rate E&M - 8867-4 PULSE RATE 69 /min Jun 10, 2014 blood pressure, diastolic - 8462-4 BP DIASTOLIC 64 mm Hg Jul 03, 2014 weight E&M - 3141-9 WEIGHT 196 lb Jul 03, 2014 blood pressure, systolic, sitting, left arm BP SYS SIT L 146 mm Hg Jul 03, 2014 blood pressure, diastolic, sitting, left arm BP JOSE SIT L 80 mm Hg Jul 03, 2014 pulse rate, sitting, left PULSE SIT L 80 /min Jul 03, 2014 blood pressure, systolic - 8480-6 BP SYSTOLIC 146 mm Hg Jul 03, 2014 pulse rate E&M - 8867-4 PULSE RATE 80 /min Jul 03, 2014 blood pressure, diastolic - 8462-4 BP DIASTOLIC 80 mm Hg Jul 31, 2014 weight E&M - 3141-9 WEIGHT 190 lb Jul 31, 2014 blood pressure, systolic, sitting, right arm BP SYS SIT R 130 null Jul 31, 2014 blood pressure, diastolic, sitting, right arm BP JOSE SIT R 70 mmHg Jul 31, 2014 pulse rate, sitting, right PULSE SIT R 80 /min Jul 31, 2014 blood pressure, systolic - 8480-6 BP SYSTOLIC 130 mm Hg Jul 31, 2014 pulse rate E&M - 8867-4 PULSE RATE 80 /min Jul 31, 2014 blood pressure, diastolic - 8462-4 BP DIASTOLIC 70 mm Hg Results Date Description Test Name Value Reference Interpretation Status Jul 13, 2014 hemoglobin, blood HGB 12.0 g/dL 12.0-16.0 Jul 13, 2014 hematocrit, blood HCT 36.5 % 36.0-48.0 Jul 13, 2014 platelet count PLATELETS 262 K/CMM /mm3 133-450 Jul 13, 2014 hemoglobin, blood HGB 12.0 g/dL 12.0-16.0 Jul 13, 2014 hematocrit, blood HCT 36.5 % 36.0-48.0 Jul 13, 2014 platelet count PLATELETS 262 K/CMM /mm3 133-450 Jul 13, 2014 hemoglobin, blood HGB 12.0 g/dL 12.0-16.0 Jul 13, 2014 hematocrit, blood HCT 36.5 % 36.0-48.0 Jul 13, 2014 platelet count PLATELETS 262 K/CMM /mm3 133-450 Jul 13, 2014 hemoglobin, blood HGB 12.0 g/dL 12.0-16.0 Jul 13, 2014 hematocrit, blood HCT 36.5 % 36.0-48.0 Jul 13, 2014 platelet count PLATELETS 262 K/CMM /mm3 133-450 Jul 13, 2014 cholesterol, serum CHOLESTEROL 144 mg/dl <=199 Jul 13, 2014 triglyceride, serum, fasting TRIGLYCERIDE 251 mg/dl <=149 High Jul 13, 2014 HDL cholesterol, serum HDL 41 mg/dl >=61 Low Jul 13, 2014 sodium, serum SODIUM 138 MEQ/L mmol/L 135-145 Jul 13, 2014 potassium, serum POTASSIUM 4.6 MEQ/L mmol/L 3.5-5.1 Jul 13, 2014 creatinine, serum CREATININE 0.8 mg/dL 0.5-1.4 Jul 13, 2014 urea nitrogen, blood BUN 17 mg/dL 7-Jul 13, 2014 urea nitrogen/creatinine ratio, serum BUN/CREAT 21 null 6-25 Jul 13, 2014 albumin, serum ALBUMIN 4.0 g/dL 3.5-5.0 Jul 13, 2014 calcium, serum CALCIUM 9.2 mg/dL 8.5-10.5 Jul 13, 2014 alanine aminotransferase (SGPT), serum SGPT (ALT) 20 U/L 0-65 Jul 13, 2014 aspartate aminotransferase (SGOT), serum SGOT (AST) 19 U/L 0-37 Jul 13, 2014 alkaline phosphatase, serum ALK PHOS 99 U/L 39-136 Jul 13, 2014 cholesterol, serum CHOLESTEROL 144 mg/dl <=199 Jul 13, 2014 triglyceride, serum, fasting TRIGLYCERIDE 251 mg/dl <=149 High Jul 13, 2014 HDL cholesterol, serum HDL 41 mg/dl >=61 Low Jul 13, 2014 sodium, serum SODIUM 138 MEQ/L mmol/L 135-145 Jul 13, 2014 potassium, serum POTASSIUM 4.6 MEQ/L mmol/L 3.5-5.1 Jul 13, 2014 creatinine, serum CREATININE 0.8 mg/dL 0.5-1.4 Jul 13, 2014 urea nitrogen, blood BUN 17 mg/dL 04-07Jul 13, 2014 urea nitrogen/creatinine ratio, serum BUN/CREAT null -Jul 13, 2014 albumin, serum ALBUMIN 4.0 g/dL 3.5-5.0 Jul 13, 2014 calcium, serum CALCIUM 9.2 mg/dL 8.5-10.5 Jul 13, 2014 alanine aminotransferase (SGPT), serum SGPT (ALT) 20 U/L 0-65 Jul 13, 2014 aspartate aminotransferase (SGOT), serum SGOT (AST) 19 U/L 0-37 Jul 13, 2014 alkaline phosphatase, serum ALK PHOS 99 U/L 39-136 Jul 13, 2014 cholesterol, serum CHOLESTEROL 144 mg/dl <=199 Jul 13, 2014 triglyceride, serum, fasting TRIGLYCERIDE 251 mg/dl <=149 High Jul 13, 2014 HDL cholesterol, serum HDL 41 mg/dl >=61 Low Jul 13, 2014 LDL cholesterol, serum LDL 53 mg/dl <=99 Jul 13, 2014 sodium, serum SODIUM 138 MEQ/L mmol/L 135-145 Jul 13, 2014 potassium, serum POTASSIUM 4.6 MEQ/L mmol/L 3.5-5.1 Jul 13, 2014 creatinine, serum CREATININE 0.8 mg/dL 0.5-1.4 Jul 13, 2014 urea nitrogen, blood BUN 17 mg/dL 04-07Jul 13, 2014 urea nitrogen/creatinine ratio, serum BUN/CREAT null -Jul 13, 2014 albumin, serum ALBUMIN 4.0 g/dL 3.5-5.0 Jul 13, 2014 calcium, serum CALCIUM 9.2 mg/dL 8.5-10.5 Jul 13, 2014 alanine aminotransferase (SGPT), serum SGPT (ALT) 20 U/L 0-65 Jul 13, 2014 aspartate aminotransferase (SGOT), serum SGOT (AST) 19 U/L 0-37 Jul 13, 2014 alkaline phosphatase, serum ALK PHOS 99 U/L 39-136 Jul 13, 2014 cholesterol, serum CHOLESTEROL 144 mg/dl <=199 Jul 13, 2014 triglyceride, serum, fasting TRIGLYCERIDE 251 mg/dl <=149 High Jul 13, 2014 HDL cholesterol, serum HDL 41 mg/dl >=61 Low Jul 13, 2014 LDL cholesterol, serum LDL 53 mg/dl <=99 Jul 13, 2014 sodium, serum SODIUM 138 MEQ/L mmol/L 135-145 Jul 13, 2014 potassium, serum POTASSIUM 4.6 MEQ/L mmol/L 3.5-5.1 Jul 13, 2014 creatinine, serum CREATININE 0.8 mg/dL 0.5-1.4 Jul 13, 2014 urea nitrogen, blood BUN 17 mg/dL 7-22 Jul 13, 2014 urea nitrogen/creatinine ratio, serum BUN/CREAT 21 null 6-25 Jul 13, 2014 albumin, serum ALBUMIN 4.0 g/dL 3.5-5.0 Jul 13, 2014 calcium, serum CALCIUM 9.2 mg/dL 8.5-10.5 Jul 13, 2014 alanine aminotransferase (SGPT), serum SGPT (ALT) 20 U/L 0-65 Jul 13, 2014 aspartate aminotransferase (SGOT), serum SGOT (AST) 19 U/L 0-37 Jul 13, 2014 alkaline phosphatase, serum ALK PHOS 99 U/L 39-136 Jul 13, 2014 prothrombin time (patient) PT PATIENT 12.8 s 12.0-14.7 Jul 13, 2014 international normalized ratio (INR) INR 0.96 null 0.85-1.17 Jul 13, 2014 PTT patient PTT PATIENT 35.5 s 22.9-35.8 Jul 13, 2014 prothrombin time (patient) PT PATIENT 12.8 s 12.0-14.7 Jul 13, 2014 international normalized ratio (INR) INR 0.96 null 0.85-1.17 Jul 13, 2014 PTT patient PTT PATIENT 35.5 s 22.9-35.8 Jul 13, 2014 prothrombin time (patient) PT PATIENT 12.8 s 12.0-14.7 Jul 13, 2014 international normalized ratio (INR) INR 0.96 null 0.85-1.17 Jul 13, 2014 PTT patient PTT PATIENT 35.5 s 22.9-35.8 Jul 13, 2014 prothrombin time (patient) PT PATIENT 12.8 s 12.0-14.7 Jul 13, 2014 international normalized ratio (INR) INR 0.96 null 0.85-1.17 Jul 13, 2014 PTT patient PTT PATIENT 35.5 s 22.9-35.8
--- OUTSIDE RECORDS SUMMARY | 2019-03-18 07:22 | XMS REPORT | Continuity of Care Document ---
Author Author [facility] Organization [facility] Address Unknown Phone Unavailable Care Team Providers Care Inhalation Therapy Teacher Name Role Phone MD Arnie, Ayan CORDON Unavailable Insurance Providers Payer name Policy type / Coverage type Policy ID Covered alliance party ID Policy Luis [employer] [place]AD[place]AL [facility] [place] [place] Encounters Encounter Performer Location Date Lab Report Ayan Gaitan MD [facility] Cardiology [address] Jul 13, 2014 Problems Problem Effective Dates Problem Status ANGINA - STABLE Jun 10, 2014 Active DIABETES MELLITUS - TYPE II - UNCONTROLLED Jun 10, 2014 Active HYPERTENSION - BENIGN ESSENTIAL Jun 10, 2014 Active Procedures Date Description Comments Jun 10, 2014 smoking status Never smoker Jul 03, 2014 smoking status Never smoker Medications Medication [...] tablet twice daily Jun 10, 2014 Active IMDUR 30 MG [id number] 1 tablet daily Jun 10, 2014 Active ATORVASTATIN CALCIUM [...] - 8462-4 BP DIASTOLIC 80 mm Hg Results Date Description Test Name [...] urea nitrogen/creatinine ratio, serum BUN/CREAT 21 null -Jul 13, 2014 albumin, serum ALBUMIN [...] urea nitrogen/creatinine ratio, serum BUN/CREAT 21 null 6-Jul 13, 2014 albumin, serum ALBUMIN 4.0 g/dL [...] 2014 urea nitrogen, blood BUN 17 mg/dL -Jul 13, 2014 urea nitrogen/creatinine ratio, serum BUN/CREAT 21 null 6-Jul 13, 2014 albumin, serum ALBUMIN 4.0 g/dL [...]
--- OUTSIDE RECORDS SUMMARY | 2019-03-18 07:22 | XMS REPORT | Continuity of Care Document ---
Author Author [facility] Organization [facility] Address Unknown Phone Unavailable Care Team Providers Care Industrial Yard Brake Coupler Name Role Phone MD Arnie, Ayan CORDON Unavailable Insurance Providers Payer name Policy type / Coverage type Policy ID Covered constitution party ID Policy Luis [place] [facility] [place] [facility] [place]E Encounters Encounter Performer Location Date Office Visit Ayan Gaitan MD [facility] Cardiology [address] Jul 03, 2014 Problems Problem Effective Dates Problem Status [...] Jun 10, 2014 Active IMDUR 30 MG [id number] 1 tablet daily Jun 10, 2014 Active [...]
--- OUTSIDE RECORDS SUMMARY | 2019-03-18 07:22 | XMS REPORT | Continuity of Care Document ---
Author Author [facility] Organization [facility] Address Unknown Phone Unavailable Care Team Providers Care Layout Operator Name Role Phone MD Arnie, Ayan CORDON Unavailable Insurance Providers Payer name Policy type / Coverage type Policy ID Covered libertarian ID Policy Luis [place] - [place]AD[place] [employer] [place] Encounters Encounter Performer Location Date Office Visit Ayan Gaitan MD [facility] Cardiology [place] Jun 10, 2014 Problems Problem Effective Dates Problem Status ANGINA - STABLE Jun 10, 2014 Active DIABETES MELLITUS - TYPE II - UNCONTROLLED Jun 10, 2014 Active HYPERTENSION - BENIGN ESSENTIAL Jun 10, 2014 Active Procedures Date Description Comments Jun 10, 2014 smoking status Never smoker Medications Medication [...] Jun 10, 2014 Active IMDUR 30 MG [id number] 1 tablet daily Jun 10, 2014 Active ATORVASTATIN CALCIUM 20 MG TABS 1 tablet daily May 22, 2014 Active ASPIRIN EC LOW DOSE 81 MG TBEC 1 tablet daily Jun 10, 2014 Active Vital Signs Date Description Test Result Jun [...]
--- OUTSIDE RECORDS SUMMARY | 2019-03-18 07:22 | XMS REPORT | Summary of Care ---
Author Organization Unknown Address Unknown Phone Unavailable Encounter HQ Michelle_debbie(JARRETT) [id number] Date(s): 07/14/14 - 07/15/14 [facility] [address] Discharge Disposition: Home Physician Attending: Ayan Gaitan MD Physician Admitting: Ayan Gaitan MD Physician_Referring: Ayan Gaitan MD Reason for Visit ABN STRESS TEST Vital Signs 1 2 3 Most recent to oldest [Reference Range]: 152.4 cm (07/14/14 2:54 PM) Height 98.4 DegF (07/15/14 11:08 AM) 98.3 DegF (07/15/14 8:00 AM) 98.6 DegF (07/15/14 4:00 AM) Temperature Oral [96.4-99.1 DegF] 115 mmHg (07/15/14 11:08 AM) 134 mmHg (07/15/14 8:00 AM) 138 mmHg (07/15/14 4:00 AM) Systolic Blood Pressure [90-140 mmHg] 63 mmHg (07/15/14 11:08 AM) 67 mmHg (07/15/14 8:00 AM) 70 mmHg (07/15/14 4:00 AM) Diastolic Blood Pressure [60-90 mmHg] 20 BRMIN (07/15/14 11:08 AM) 20 BRMIN (07/15/14 8:00 AM) 18 BRMIN (07/15/14 4:00 AM) Respiratory Rate [14-20 BRMIN] 67 bpm (07/15/14 11:08 AM) 76 bpm (07/15/14 8:00 AM) 69 bpm (07/15/14 4:00 AM) Peripheral Pulse Rate [60-100 bpm] 2.517 kg (07/15/14 7:47 AM) 88.682 kg (07/15/14 1:26 AM) 86.364 kg (07/14/14 2:54 PM) Weight 37.18 m2 (07/14/14 2:54 PM) Body Mass Index Problem List Condition Effective Dates Status Health Status Informant Angina associated Resolved with type 2 diabetes mellitus(Confirmed) Diabetes(Confirmed) Resolved Hyperlipidemia(Confi Resolved rmed) Hypertension(Confirm Resolved ed) Osteoarthritis(Confi Resolved rmed) Allergies, Adverse Reactions, Alerts Substance Reaction Severity Status NKDA Active Medications acetaminophen 650 mg, 2 tab, Route: PO, Drug form: TAB, Q4H, Dosing Weight 86.364, kg, PRN Radha n/Fever, Start date: 07/14/14 17:19:00, Stop date: 08/13/14 17:18:00 Notes: Do not exceed 4 gm/day. (Same as: Tylenol) Start Date: 07/14/14 Stop Date: 07/15/14 Status: Discontinued acetaminophen-hydrocodone 325 mg-5 mg oral tablet 1 tab, Route: PO, Drug Form: TAB, Dosing Weight 86.364, kg, Q4H, PRN Pain Score 1-5, Start date: 07/14/14 17:19:00, Duration: 30 day, Stop date: 08/13/14 17:18: 00 Notes: (Same as: [place] 325/5) Do not exceed 4gm/day of acetaminophen. Start Date: 07/14/14 Stop Date: 07/15/14 Status: Discontinued aspirin 81 mg tablet, enteric coated 81 mg, 1 tab, Route: PO, Drug form: ECTAB, Daily, Dosing Weight 86.364, kg, Star t date: 07/15/14 9:00:00, Duration: 30 day, Stop date: 08/13/14 9:00:00 Notes: Do not crush or chew.(Same As: Ecotrin) Start Date: 07/15/14 Stop Date: 07/15/14 Status: Discontinued aspirin 81 mg tablet, enteric coated 81 mg, PO, Daily, 0 Refill(s) Start Date: 07/14/14 Status: Ordered atorvastatin 20 mg, 1 tab, Route: PO, Drug form: TAB, Bedtime, Dosing Weight 86.364, kg, Star t date: 07/14/14 21:00:00, Duration: 30 day, Stop date: 08/12/14 21:00:00 Notes: (Same As: Lipitor) Start Date: 07/14/14 Stop Date: 07/15/14 Status: Discontinued atorvastatin 20 mg oral tablet 20 mg=1 tab, PO, Bedtime, # 60 tab, 3 Refill(s) Start Date: 07/15/14 Status: Ordered atorvastatin 20 mg oral tablet 20 mg=1 tab, PO, Bedtime, # 30 tab, 0 Refill(s) Start Date: 07/14/14 Stop Date: 07/15/14 Status: Discontinued BD Normal Saline Flush 10 mL, Route: IVP, Drug Form: INJ, PRN, PRN Line Flush, Start date: 07/14/14 17: 22:00, Duration: 30 day, Stop date: 08/13/14 16:21:00 Notes: (Same as: BD Posiflush) Start Date: 07/14/14 Stop Date: 07/15/14 Status: Discontinued Caltrate 600 + D 1 tab, PO, Daily, 0 Refill(s) Start Date: 07/14/14 Status: Ordered carvedilol 3.125 mg, 1 tab, Route: PO, Drug form: TAB, Q12H, Dosing Weight 86.364, kg, Star t date: 07/14/14 21:00:00, Duration: 30 day, Stop date: 08/13/14 9:00:00 Notes: Give with food. (Same As: Coreg) Start Date: 07/14/14 Stop Date: 07/15/14 Status: Discontinued carvedilol 3.125 mg oral tablet 3.125 mg=1 tab, PO, Q12H, # 120 tab, 3 Refill(s) Start Date: 07/15/14 Status: Ordered carvedilol 3.125 mg oral tablet 3.125 mg=1 tab, PO, Q12H, # 60 tab, 0 Refill(s) Start Date: 07/14/14 Stop Date: 07/15/14 Status: Discontinued clopidogrel 75 mg, 1 tab, Route: PO, Drug form: TAB, Daily, Dosing Weight 86.364, kg, Start date: 07/15/14 9:00:00, Duration: 30 day, Stop date: 08/13/14 9:00:00 Notes: (Same As: Plavix) Start Date: 07/15/14 Stop Date: 07/15/14 Status: Discontinued clopidogrel 75 mg oral tablet 75 mg, PO, Daily, # 60 caplet, 3 Refill(s) Start Date: 07/14/14 Status: Ordered Dextrose 50% in Water IV 50 mL, Route: IVP, Start date: 07/14/14 22:18:00, Duration: 30 day, Stop date: 10/13/13 21:17:00, PRN Blood Glucose Results Start Date: 07/14/14 Stop Date: 07/15/14 Status: Discontinued Dextrose 50% in Water IV 25 mL, Route: IVP, Start date: 07/14/14 22:18:00, Duration: 30 day, Stop date: 10/13/13 21:17:00, PRN Blood Glucose Results Start Date: 07/14/14 Stop Date: 07/15/14 Status: Discontinued Diovan 160 mg, 1 tab, Route: PO, Drug form: TAB, Daily, Dosing Weight 86.364, kg, Start date: 07/15/14 9:00:00, Duration: 30 day, Stop date: 08/13/14 9:00:00 Notes: Same as Diovan Start Date: 07/15/14 Stop Date: 07/15/14 Status: Discontinued Diovan 160 mg oral tablet 160 mg=1 tab, PO, Daily, # 30 tab, 0 Refill(s) Start Date: 07/14/14 Stop Date: 07/15/14 Status: Discontinued glucagon 1 mg, Route: IV, Drug form: PDR/INJ, PRN, PRN Blood Glucose Results, Start date: 07/14/14 22:18:00, Duration: 30 day, Stop date: 08/13/14 21:17:00 Start Date: 07/14/14 Stop Date: 07/15/14 Status: Discontinued Lantus 100 units/mL 0 Refill(s) Start Date: 07/14/14 Stop Date: 07/15/14 Status: Discontinued Lantus Solostar Pen 100 units/mL subcutaneous solution 10 unit, SUB-Q, Daily, # 10 ml, 0 Refill(s) Start Date: 07/14/14 Status: Ordered morphine Sulfate 2 mg, 1 mL, Route: IVP, Drug form: INJ, Q15Min, Dosing Weight 86.364, kg, PRN Ch est Pain, Start date: 07/14/14 17:19:00, Duration: 2 doses or times, Stop date: Limited # of times Notes: (Same as:MORPhine Sulfate) Start Date: 07/14/14 Stop Date: 07/15/14 Status: Discontinued nitroglycerin SL Tab 0.4 mg, 1 tab, Route: SL, Drug form: TAB, Q5Min, Dosing Weight 86.364, kg, PRN C hest Pain, Start date: 07/14/14 17:19:00, Duration: 3 doses or times, Stop date: Limited # of times Notes: (Same as:Nitroquick, Nitrostat)"Do Not Crush" Sublingual tablet Start Date: 07/14/14 Stop Date: 07/15/14 Status: Discontinued NovoLOG 100 units/mL 40 units, TID-Before Meals, 0 Refill(s) Start Date: 07/14/14 Status: Ordered NovoLOG FlexPen 10 unit, 0.1 mL, Route: SUB-Q, Drug form: SOLN, Sliding Scale, PRN Blood Glucose Results, Start date: 07/14/14 22:18:00, Duration: 30 day, Stop date: 08/13/14 2 1:17:00 Notes: Roll in palms of hands gently; Do not shake vigorously. (Same as: NovoLO G)"single patient use only" Stable for 28 days at room temperature.Expires in _ ____ days from Date Start Date: 07/14/14 Stop Date: 07/15/14 Status: Discontinued NovoLOG FlexPen 6 unit, 0.06 mL, Route: SUB-Q, Drug form: SOLN, Sliding Scale, PRN Blood Glucose Results, Start date: 07/14/14 22:18:00, Duration: 30 day, Stop date: 08/13/14 2 1:17:00 Notes: Roll in palms of hands gently; Do not shake vigorously. (Same as: NovoLO G)"single patient use only" Stable for 28 days at room temperature.Expires in _ ____ days from Date Start Date: 07/14/14 Stop Date: 07/15/14 Status: Discontinued NovoLOG FlexPen 8 unit, 0.08 mL, Route: SUB-Q, Drug form: SOLN, Sliding Scale, PRN Blood Glucose Results, Start date: 07/14/14 22:18:00, Duration: 30 day, Stop date: 08/13/14 2 1:17:00 Notes: Roll in palms of hands gently; Do not shake vigorously. (Same as: NovoLO G)"single patient use only" Stable for 28 days at room temperature.Expires in _ ____ days from Date Start Date: 07/14/14 Stop Date: 07/15/14 Status: Discontinued NovoLOG FlexPen 4 unit, 0.04 mL, Route: SUB-Q, Drug form: SOLN, Sliding Scale, PRN Blood Glucose Results, Start date: 07/14/14 22:18:00, Duration: 30 day, Stop date: 08/13/14 2 1:17:00 Notes: Roll in palms of hands gently; Do not shake vigorously. (Same as: NovoLO G)"single patient use only" Stable for 28 days at room temperature.Expires in _ ____ days from Date Start Date: 07/14/14 Stop Date: 07/15/14 Status: Discontinued NovoLOG FlexPen 2 unit, 0.02 mL, Route: SUB-Q, Drug form: SOLN, Sliding Scale, PRN Blood Glucose Results, Start date: 07/14/14 22:18:00, Duration: 30 day, Stop date: 08/13/14 2 1:17:00 Notes: Roll in palms of hands gently; Do not shake vigorously. (Same as: NovoLO G)"single patient use only" Stable for 28 days at room temperature.Expires in _ ____ days from Date Start Date: 07/14/14 Stop Date: 07/15/14 Status: Discontinued ondansetron 4 mg, 1 tab, Route: PO, Drug form: TAB, Q8H, Dosing Weight 86.364, kg, PRN Nause a & Vomiting, Start date: 07/14/14 17:19:00, Duration: 30 day, Stop date: 08/13/14 17:18:00 Notes: (Same as: Zofran) Start Date: 07/14/14 Stop Date: 07/15/14 Status: Discontinued Osteo Bi-Flex See Instructions, 1, 0 Refill(s) Special Instructions: 1 Start Date: 07/14/14 Status: Ordered Osteo Bi-Flex Route: PO, Dosing Weight 86.364, kg, Daily, Start date: 07/15/14 9:00:00, Durati on: 30 day, Stop date: 08/13/14 9:00:00 Start Date: 07/15/14 Stop Date: 07/15/14 Status: Deleted Sodium Chloride 0.9% IV 250 mL, Route: IVPB, Start date: 07/14/14 17:22:00, Duration: 30 day, Stop date: 08/13/14 16:21:00, PRN Line Flush Start Date: 07/14/14 Stop Date: 07/15/14 Status: Discontinued Sodium Chloride 0.9% IV 1,000 mL 1,000 mL, Rate: 100 ml/hr, Infuse over: 10 hr, Route: IV, Dosing Weight 86.364 k g, Total Volume: 1,000, Start date: 07/14/14 17:19:00, Duration: 30 day, Stop da te: 08/13/14 17:18:00 Start Date: 07/14/14 Stop Date: 07/15/14 Status: Discontinued temazepam 15 mg, 1 cap, Route: PO, Drug form: CAP, Bedtime, Dosing Weight 86.364, kg, PRN Insomnia, Start date: 07/14/14 17:19:00, Duration: 30 day, Stop date: 08/13/14 1 7:18:00 Notes: (Same As: Restoril) Start Date: 07/14/14 Stop Date: 07/15/14 Status: Discontinued Tylenol 650 mg, 2 tab, Route: PO, Drug form: TAB, Q4H, Dosing Weight 86.364, kg, PRN Fev er, Start date: 07/14/14 19:54:00, Stop date: 08/13/14 19:53:00 Notes: Do not exceed 4 gm/day. (Same as: Tylenol) Start Date: 07/14/14 Stop Date: 07/14/14 Status: Discontinued Tylenol 325 mg oral tablet 650 mg=2 tab, PO, Q4H, Fever, # 120 tab, 0 Refill(s) Start Date: 07/14/14 Status: Ordered Unknown Home Medication 50, Daily, Refill(s) 0 Start Date: 07/14/14 Stop Date: 07/15/14 Status: Discontinued valsartan 160 mg oral tablet 160 mg=1 tab, PO, Daily, # 60 tab, 3 Refill(s) Start Date: 07/15/14 Status: Ordered Results ELECTROLYTES 1 2 3 Most recent to oldest [Reference Range]: 138 mEq/L (07/15/14 5:30 AM) 136 mEq/L (07/14/14 6:10 PM) Sodium Lvl [135-145 mEq/L] 4.1 mEq/L (07/15/14 5:30 AM) 3.5 mEq/L (07/14/14 6:10 PM) Potassium Lvl [3.5-5.1 mEq/L] 102 mEq/L (07/15/14 5:30 AM) 103 mEq/L (07/14/14 6:10 PM) Chloride Lvl [95-109 mEq/L] 26 mEq/L (07/15/14 5:30 AM) 25 mEq/L (07/14/14 6:10 PM) CO2 [24-32 mEq/L] 14.1 mEq/L (07/15/14 5:30 AM) 11.5 mEq/L (07/14/14 6:10 PM) AGAP [10.0-20.0 mEq/L] 139 mEq/L (07/14/14 2:15 PM) POC Sodium [135-145 mEq/L] 3.9 mEq/L (07/14/14 2:15 PM) POC Potassium [3.5-5.1 mEq/L] 100 mEq/L (07/14/14 2:15 PM) POC Chloride [95-109 mEq/L] 26 mEq/dL (07/14/14 2:15 PM) POC Carbon Dioxide [24-32 mEq/dL] 19.0 mEq/L (07/14/14 2:15 PM) POC AGAP [10.0-20.0 mEq/L] CHEM PANEL 1 2 3 Most recent to oldest [Reference Range]: 0.7 mg/dL (07/15/14 5:30 AM) 0.6 mg/dL (07/14/14 6:10 PM) Creatinine Lvl [0.5-1.4 mg/dL] 87 mL/min/1.73m2 1 *NA* (07/15/14 5:30 AM) 92 mL/min/1.73m2 2 *NA* (07/14/14 6:10 PM) 92 mL/min/1.73m2 3 *NA* (07/14/14 2:15 PM) eGFR 12 mg/dL (07/15/14 5:30 AM) 11 mg/dL (07/14/14 6:10 PM) BUN [7-22 mg/dL] 134 mg/dL 4 *HI* (07/15/14 5:30 AM) 122 mg/dL 5 *HI* (07/14/14 6:10 PM) Glucose Lvl [70-99 mg/dL] 0.6 mg/dL (07/14/14 2:15 PM) POC Creatinine [0.5-1.4 mg/dL] 12 mg/dL (07/14/14 2:15 PM) POC BUN [7-22 mg/dL] 136 mg/dL *HI* (07/14/14 2:15 PM) POC Glucose [70-99 mg/dL] 8.9 mg/dL (07/15/14 5:30 AM) 8.3 mg/dL *LOW* (07/14/14 6:10 PM) Calcium Lvl [8.5-10.5 mg/dL] 1.20 mMol/L (07/14/14 2:15 PM) POC Ion Ca [1.05-1.25 mMol/L] 1Result Comment: The eGFR is calculated using the CKD-EPI formula. In most young, healthy individuals the eGFR will be >90 mL/min/1.73m2. The eGFR declines with age. An eGFR of 60-89 may be normal in some populations, particularly the elderly, for whom the CKD-EPI formula has not been extensively validated. Use of the eGFR is not recommended in the following populations: Individuals with unstable creatinine concentrations, including patients and those with serious co-morbid conditions. Patients with extremes in muscle mass or diet. The data above are obtained from the National Kidney Disease Education Program ( NKDEP) which additionally recommends that when the eGFR is used in patients with extremes of body mass index for purposes of drug dosing, the eGFR should be mul tiplied by the estimated BMI. 2Result Comment: The eGFR is calculated using the CKD-EPI formula. In most young, healthy individuals the eGFR will be >90 mL/min/1.73m2. The eGFR declines with age. An eGFR of 60-89 may be normal in some populations, particularly the elderly, for whom the CKD-EPI formula has not been extensively validated. Use of the eGFR is not recommended in the following populations: Individuals with unstable creatinine concentrations, including patients and those with serious co-morbid conditions. Patients with extremes in muscle mass or diet. The data above are obtained from the National Kidney Disease Education Program ( NKDEP) which additionally recommends that when the eGFR is used in patients with extremes of body mass index for purposes of drug dosing, the eGFR should be mul tiplied by the estimated BMI. 3Result Comment: The eGFR is calculated using the CKD-EPI formula. In most young, healthy individuals the eGFR will be >90 mL/min/1.73m2. The eGFR declines with age. An eGFR of 60-89 may be normal in some populations, particularly the elderly, for whom the CKD-EPI formula has not been extensively validated. Use of the eGFR is not recommended in the following populations: Individuals with unstable creatinine concentrations, including patients and those with serious co-morbid conditions. Patients with extremes in muscle mass or diet. The data above are obtained from the National Kidney Disease Education Program ( NKDEP) which additionally recommends that when the eGFR is used in patients with extremes of body mass index for purposes of drug dosing, the eGFR should be mul tiplied by the estimated BMI. 4Interpretive Data: Adult reference range values reflect the clinical guidelines of the [place] [employer]. 5Interpretive Data: Adult reference range values reflect the clinical guidelines of the [place] [employer]. HEMATOLOGY 1 2 3 Most recent to oldest [Reference Range]: 7.3 K/CMM (07/15/14 5:30 AM) WBC [3.7-10.4 K/CMM] 4.32 M/CMM (07/15/14 5:30 AM) RBC [4.20-5.40 M/CMM] 11.1 g/dL *LOW* (07/15/14 5:30 AM) Hgb [12.0-16.0 g/dL] 33.8 % *LOW* (07/15/14 5:30 AM) Hct [36.0-48.0 %] 78.2 fL *LOW* (07/15/14 5:30 AM) MCV [80.0-98.0 fL] 25.6 pg *LOW* (07/15/14 5:30 AM) MCH [27.0-31.0 pg] 32.7 g/dL (07/15/14 5:30 AM) MCHC [32.0-36.0 g/dL] 16.6 % *HI* (07/15/14 5:30 AM) RDW [11.5-14.5 %] 238 K/CMM (07/15/14 5:30 AM) Platelet [133-450 K/CMM] 7.6 fL (07/15/14 5:30 AM) MPV [7.4-10.4 fL] 11.9 g/dL *LOW* (07/14/14 2:15 PM) POC Hemoglobin [12.0-16.0 g/dL] 35.0 % *LOW* (07/14/14 2:15 PM) POC Hematocrit [36.0-48.0 %] 69.8 % (07/15/14 5:30 AM) Segs [45.0-75.0 %] 19.2 % *LOW* (07/15/14 5:30 AM) Lymphocytes [20.0-40.0 %] 7.2 % (07/15/14 5:30 AM) Monocytes [2.0-12.0 %] 3.4 % (07/15/14 5:30 AM) Eosinophils [0.0-4.0 %] 0.4 % (07/15/14 5:30 AM) Basophils [0.0-1.0 %] 5.1 K/CMM (07/15/14 5:30 AM) Segs-Bands # [1.5-8.1 K/CMM] 1.4 K/CMM (07/15/14 5:30 AM) Lymphocytes # [1.0-5.5 K/CMM] 0.5 K/CMM (07/15/14 5:30 AM) Monocytes # [0.0-0.8 K/CMM] 0.2 K/CMM (07/15/14 5:30 AM) Eosinophils # [0.0-0.5 K/CMM] 0.0 K/CMM (07/15/14 5:30 AM) Basophils # [0.0-0.2 K/CMM] <> *NA* (07/14/14 2:11 PM) <> *NA* (07/14/14 2:07 PM) POC PT [12.0-14.7] <0.9 (07/14/14 2:11 PM) <0.9 (07/14/14 2:07 PM) POC INR [0.9-1.2] 341 seconds *NA* (07/14/14 4:55 PM) POC Activated Clotting Time Medications Administered During Your Visit No data available for this section Immunizations No data available for this section Social History Social History Type Response Smoking Status Never smoker, Concerns about tobacco use in household: No, Exposure to Tobacco Smoke None, Cigarette Smoking Last 365 Days No, Reg Smoking Cessation Counseling No
--- OUTSIDE RECORDS SUMMARY | 2019-03-18 07:23 | XMS REPORT | Continuity of Care Document ---
Author Author [facility] Organization [facility] Address Unknown Phone Unavailable Care Team Providers Care Engineering Coordinator Name Role Phone MD Arnie, Ayan CORDON Unavailable Insurance Providers Payer name Policy type / Coverage type Policy ID Covered democrat ID Policy Luis [employer] [place] - [place]EME Encounters Encounter Performer Location Date Lab Report Ayan Gaitan MD [facility] [place] Jul 15, 2014 Problems Problem Effective Dates Problem Status [...] Jun 10, 2014 Active IMDUR 30 MG [id number] 1 tablet daily Jun 10, 2014 Active [...]
--- OUTSIDE RECORDS SUMMARY | 2019-03-18 07:23 | XMS REPORT | Continuity of Care Document ---
Author Author [facility] Organization [facility] Address Unknown Phone Unavailable Care Team Providers Care Tour Leader Name Role Phone MD Arnie, Ayan CORDON Unavailable Insurance Providers Payer name Policy type / Coverage type Policy ID Covered republican ID Policy Luis [employer] ACS - TM[place] - [facility] ([facility] REPLACEME Encounters Encounter Performer Location Date Office Visit Ayan Gaitan MD [facility] February 02, 2015 Problems Problem Effective Dates Problem Status ANGINA - STABLE Jun 10, 2014 Active DIABETES MELLITUS - TYPE II - UNCONTROLLED Jun 10, 2014 Active HYPERTENSION - BENIGN ESSENTIAL Jun 10, 2014 Active CORONARY ARTERY DISEASE, S/P PTCA Jul 31, 2014 Active CHEST PAIN February 02, 2015 Active Procedures Date Description Comments Jun 10, 2014 smoking status Never smoker Jul 03, 2014 smoking status Never smoker Jul 31, 2014 smoking status Never smoker Oct 30, 2014 smoking status Never smoker February 02, 2015 smoking status Never smoker Medications Medication Instructions [...] Jul 31, 2014 Active IMDUR 30 MG [id number] 1 tablet daily Jun 10, 2014 Inactive AZITHROMYCIN 500 MG TABS 1 tab daily May 22, 2014 Inactive Vital Signs Date Description Test [...] - 8462-4 BP DIASTOLIC 70 mm Hg Oct 30, 2014 weight E&M - 3141-9 WEIGHT 201 lb Oct 30, 2014 blood pressure, systolic, sitting, right arm BP SYS SIT R 158 null Oct 30, 2014 blood pressure, diastolic, sitting, right arm BP JOSE SIT R 67 mmHg Oct 30, 2014 pulse rate, sitting, right PULSE SIT R 95 /min Oct 30, 2014 blood pressure, systolic - 8480-6 BP SYSTOLIC 158 mm Hg Oct 30, 2014 pulse rate E&M - 8867-4 PULSE RATE 95 /min Oct 30, 2014 blood pressure, diastolic - 8462-4 BP DIASTOLIC 67 mm Hg Nov 20, 2014 weight E&M - 3141-9 WEIGHT 203 lb Nov 20, 2014 blood pressure, systolic, sitting, left arm BP SYS SIT L 118 mm Hg Nov 20, 2014 blood pressure, diastolic, sitting, left arm BP JOSE SIT L 59 mm Hg Nov 20, 2014 pulse rate, sitting, left PULSE SIT L 66 /min Nov 20, 2014 blood pressure, systolic - 8480-6 BP SYSTOLIC 118 mm Hg Nov 20, 2014 pulse rate E&M - 8867-4 PULSE RATE 66 /min Nov 20, 2014 blood pressure, diastolic - 8462-4 BP DIASTOLIC 59 mm Hg February 02, 2015 weight E&M - 3141-9 WEIGHT 198 lb February 02, 2015 blood pressure, systolic, sitting, right arm BP SYS SIT R 154 null February 02, 2015 blood pressure, diastolic, sitting, right arm BP JOSE SIT R 59 mmHg February 02, 2015 pulse rate, sitting, right PULSE SIT R 80 /min February 02, 2015 blood pressure, systolic - 8480-6 BP SYSTOLIC 154 mm Hg February 02, 2015 pulse rate E&M - 8867-4 PULSE RATE 80 /min February 02, 2015 blood pressure, diastolic - 8462-4 BP DIASTOLIC 59 mm Hg Results Date Description Test Name [...]
--- OUTSIDE RECORDS SUMMARY | 2019-03-18 07:23 | XMS REPORT | Continuity of Care Document ---
Author Author [facility] Organization [facility] Address Unknown Phone Unavailable Care Team Providers Care Tunnel Kiln Firer Name Role Phone MD Arnie, Ayan CORDON Unavailable Insurance Providers Payer name Policy type / Coverage type Policy ID Covered democrat ID Policy Luis [place] - [place] - [facility] ([facility]IC[facility] REPLACEME Encounters Encounter Performer Location Date Office Visit Ayan Gaitan MD [facility] Oct 30, 2014 Problems Problem Effective Dates Problem Status [...] Oct 30, 2014 smoking status Never smoker Medications Medication [...] Jul 31, 2014 Active IMDUR 30 MG [id number] 1 tablet daily Jun 10, 2014 Inactive Vital Signs Date Description Test Result Jun 10, 2014 height [employer] - 8302-2 HEIGHT 59 in Jun 10, [...] - 8462-4 BP DIASTOLIC 67 mm Hg Results Date Description Test Name [...]
--- OUTSIDE RECORDS SUMMARY | 2019-03-18 07:23 | XMS REPORT | Continuity of Care Document ---
Author Author [facility] Organization [facility] Address Unknown Phone Unavailable Care Team Providers Care Mica Laminating Machine Feeder Name Role Phone MD Arnie, Ayan CORDON Unavailable Insurance Providers Payer name Policy type / Coverage type Policy ID Covered constitution party ID Policy Luis [place] ACS - [place] - [facility] ([facility]IC[facility] REPLACEME Encounters Encounter Performer Location Date Office Visit Ayan Gaitan MD [facility] Cardiology [address] Nov 20, 2014 Problems Problem Effective Dates Problem Status [...] Jul 31, 2014 Active IMDUR 30 MG [id number] 1 tablet daily Jun 10, 2014 Inactive AZITHROMYCIN 500 MG TABS 1 tab daily May 22, 2014 Inactive Vital Signs Date Description Test Result Jun 10, 2014 height [employer] - 8302-2 HEIGHT 59 in Jun 10, [...]
--- OUTSIDE RECORDS SUMMARY | 2019-03-18 07:24 | XMS REPORT | Summary of Care ---
Author Author [facility] Cardiology [facility] Organization [facility] Address Unknown Phone Unavailable Encounter HQ Lydiar_debbie(FIN) [id number] Date(s): 08/12/18 - 08/12/18 [facility] [address] [place] [address]- Discharge Disposition: Home or Self Care Attending Physician: Ayan Gaitan MD Referring Physician: Ailyn Argueta MD Vital Signs Most recent to 1 oldest [Reference Range]: Height 152.4 cm (08/12/18 10:36 AM) Blood Pressure 103/61 mmHg [90-140/60-90 mmHg] (08/12/18 10:36 AM) Weight 87.045 kg (08/12/18 10:36 AM) Body Mass Index 37.48 m2 (08/12/18 10:36 AM) Problem List Condition Effective Dates Status Health Status Informant Angina1 06/10/14 Active Angina associated Resolved with type 2 diabetes mellitus(Confirmed) Atypical Active angina(Confirmed) Benign hypertension2 06/10/14 Active Chest pain3 02/02/15 Active Coronary artery Active disease(Confirmed) Diabetes Active mellitus(Confirmed) Diabetes(Confirmed) Resolved Hypercholesterolemia Active (Confirmed) Hyperlipidemia(Confi Resolved rmed) Hypertension(Confirm Active ed) Hypertension(Confirm Resolved ed) Morbid Active obesity(Confirmed) Osteoarthritis(Confi Resolved rmed) Type II diabetes 06/10/14 Active mellitus uncontrolled4 1Data migrated from [employer] on 02/16/15. 2Data migrated from [employer] on 02/16/15. 3Data migrated from [employer] on 03/24/15. 4Data migrated from [employer] on 02/16/15. Allergies, Adverse Reactions, Alerts Substance Reaction Severity Status penicillins Active NKDA Active Medications metFORMIN 500 mg oral tablet 500 mg=1 tab, PO, BID, 0 Refill(s) Start Date: 08/12/18 Status: Ordered olmesartan 40 mg oral tablet 40 mg=1 tab, PO, Daily, # 30 tab, 0 Refill(s) Start Date: 08/12/18 Status: Ordered Results No data available for this section Immunizations No data available for this section Procedures Procedure Date Related Diagnosis Body Site Status Insertion of coronary artery stent Completed Social History Social History Type Response Smoking Status Never smoker; Concerns about tobacco use in household: No; Exposure to Tobacco Smoke None; Cigarette Smoking Last 365 Days No; Reg Smoking Cessation Counseling No entered on: 01/27/19 Assessment and Plan No data available for this section
--- OUTSIDE RECORDS SUMMARY | 2019-03-18 07:24 | XMS REPORT | Summary of Care ---
Author Author [facility] Cardiology [facility] Organization [facility] Address Unknown Phone Unavailable Encounter HQ Encntr_alias(FIN) [id number] Date(s): 04/25/18 - 04/26/18 [facility] [address] [facility] [address] [place] [phone] Vital Signs No data available for this section Problem List Condition Effective Dates Status Health [...] Severity Status penicillins Active NKDA Active Medications No data available for this section Results No data available for this section [...] Smoking Cessation Counseling No entered on: 08/12/18 Assessment and Plan No data available for this section
--- OUTSIDE RECORDS SUMMARY | 2019-03-18 07:24 | XMS REPORT | Summary of Care ---
Author Author [facility] Cardiology [facility] Organization [facility] Address Unknown Phone Unavailable Encounter HQ Lydiar_debbie(FIN) [id number] Date(s): 01/09/18 - 01/10/18 [facility] [address] [facility] [address] [place] [address]- [phone] Vital Signs No data [...] Severity Status penicillins Active NKDA Active Medications carvedilol 12.5 mg oral tablet See Instructions, # 180 tab, Refill(s) 2, NEREIDA ANN TABLETA ORALMENTE DOS VECCATHERINE AL JOSE, Pharmacy: [facility] Start Date: 01/11/18 Status: Ordered Results No data available for [...] Reg Smoking Cessation Counseling No entered on: 12/31/17 Assessment and Plan No data available for this section
--- OUTSIDE RECORDS SUMMARY | 2019-03-18 07:24 | XMS REPORT | Summary of Care ---
Author Author [facility] Cardiology [facility] Organization [facility] Address Unknown Phone Unavailable Encounter HQ Lydiar_debbie(FIN) [id number] Date(s): 12/31/17 - 12/31/17 [facility] [address] [facility] [place] [address] [phone] Discharge Disposition: Home or Self Care Attending Physician: Ayan Gaitan MD Referring Physician: Ailyn Argueta MD Vital Signs Most recent to 1 oldest [Reference Range]: Height 152.4 cm (12/31/17 12:06 PM) Blood Pressure 131/75 mmHg [90-140/60-90 mmHg] (12/31/17 12:06 PM) Peripheral Pulse 88 bpm Rate [60-100 bpm] (12/31/17 12:06 PM) Weight 92.727 kg (12/31/17 12:06 PM) Body Mass Index 39.92 m2 (12/31/17 12:06 PM) Problem List Condition Effective Dates Status Health [...] Severity Status penicillins Active NKDA Active Medications atorvastatin 40 mg oral tablet 40 mg=1 tab, PO, Bedtime, # 30 tab, 0 Refill(s) Start Date: 12/31/17 Status: Ordered Caltrate 600 + D 1 tab, PO, BID, 0 Refill(s) Start Date: 12/31/17 Status: Ordered cinnamon 500 mg oral capsule 1,000 mg=2 cap, PO, BID, # 100 cap, 0 Refill(s) Start Date: 12/31/17 Status: Ordered DULoxetine 30 mg oral delayed release capsule 30 mg=1 cap, PO, Daily, # 30 cap, 0 Refill(s) Start Date: 12/31/17 Status: Ordered metFORMIN 1000 mg oral tablet 1,000 mg=1 tab, PO, BID-Meals, # 30 tab, 0 Refill(s) Start Date: 12/31/17 Status: Ordered Results No data available for [...]
--- OUTSIDE RECORDS SUMMARY | 2019-03-18 07:24 | XMS REPORT | Summary of Care ---
Author Author [facility] Cardiology [facility] Address Unknown Phone Unavailable Encounter HQ Encntr_alias(FIN) [id number] Date(s): 10/31/17 - 11/01/17 [facility] [address] [place] [phone] Vital Signs No data [...]
--- OUTSIDE RECORDS SUMMARY | 2019-03-18 07:24 | XMS REPORT | Summary of Care ---
Author Author [facility] Cardiology [facility] Organization [facility] Address Unknown Phone Unavailable Encounter HQ Jazminntr_debbie(FIN) [id number] Date(s): 01/27/19 - 01/27/19 [facility] [address] [place] [address]- Discharge Disposition: Home or Self Care Attending Physician: Ayan Gaitan MD Referring Physician: Ailyn Argueta MD Vital Signs Most recent to 1 oldest [Reference Range]: Height 152.4 cm (01/27/19 12:23 PM) Blood Pressure 114/70 mmHg [90-140/60-90 mmHg] (01/27/19 12:23 PM) Peripheral Pulse 79 bpm Rate [60-100 bpm] (01/27/19 12:23 PM) Weight 89.545 kg (01/27/19 12:23 PM) Body Mass Index 38.55 m2 (01/27/19 12:23 PM) Problem List Condition Effective Dates Status [...] Status penicillins Active NKDA Active Medications No Known Medications Results No data available for this section [...]
--- OUTSIDE RECORDS SUMMARY | 2019-03-18 07:24 | XMS REPORT | Summary of Care ---
Author Author [facility] Cardiology [facility] Organization [facility] Address Unknown Phone Unavailable Encounter HQ Encntr_alias(FIN) [id number] Date(s): 01/27/19 - 01/27/19 [facility] [address] [place] [address]- Attending Physician: Katerin Shaikh Referring Physician: Ailyn Argueta MD Vital Signs No data available for this [...]
--- OUTSIDE RECORDS SUMMARY | 2019-03-18 07:24 | XMS REPORT | Summary of Care ---
Author Author [facility] Cardiology [facility] Organization [facility] Address Unknown Phone Unavailable Encounter HQ Jazminntr_alisanjana(FIN) [id number] Date(s): 07/09/18 - 07/10/18 [facility] [address] [place] [address]- Vital Signs No data available for this [...] 1 TABLET BY MOUTH TWICE DAILY, [facility] [id number] Start Date: 07/10/18 Stop Date: 09/06/18 Status: Completed Results No data available for this section [...]
--- OUTSIDE RECORDS SUMMARY | 2019-03-18 07:24 | XMS REPORT | Summary of Care ---
Author Author [facility] Cardiology [facility] Organization [facility] Address Unknown Phone Unavailable Encounter HQ Encntr_alias(FIN) [id number] Date(s): 01/27/19 - 01/27/19 [facility] [address] [place] [address]- Discharge Disposition: Home or Self Care Attending [...] 06/10/14 Active mellitus uncontrolled4 1Data migrated from [employer] on 02/16/15. 2Data migrated from [employer] [...]
--- OUTSIDE RECORDS SUMMARY | 2019-03-18 07:24 | XMS REPORT | Summary of Care ---
Author Author [facility] Organization [facility] Address Unknown Phone Unavailable Encounter HQ Jazminntr_debbie(FIN) [id number] Date(s): 11/28/18 - 11/28/18 [facility] [address] [place], [place] [address]- [phone] Discharge Disposition: Home or Self Care Attending Physician: Ailyn Argueta MD Referring Physician: Ailyn Argueta MD Vital [...] 06/10/14 Active mellitus uncontrolled4 1Data migrated from [employer] on 02/16/15. 2Data migrated from [employer] on 02/16/15. 3Data migrated from [employer] on 03/24/15. 4Data migrated from [employer] on 02/16/15. Allergies, Adverse Reactions, Alerts Substance [...]
--- OUTSIDE RECORDS SUMMARY | 2019-03-18 07:25 | XMS REPORT ---
Author Author [facility] Address Unknown Phone Unavailable Care Team Providers Care Crab Butcher Name Role Phone UNKNOWN, REFFERING PP Unavailable Cj LARA Unavailable Unavailable Problems This patient has no known problems. Allergies, Adverse Reactions, Alerts This patient has no known allergies or adverse reactions. Medications This patient has no known medications. Encounters Start Date/Time End Date/Time Encounter Type Admission Type Attending Clinicians Care Facility Care Department Encounter ID 2017-11-20 08:33:00 2017-11-20 08:33:00 Outpatient C MARCO LARA [facility] [id number] Results Test Description Test Time Test Comments Text Results Atomic Results Result Comments POC Glucose, Blood 2017-11-20 10:08:00 POC Glucose (test code=POCGLUC) 206 mg/dL 70-115 If you consider your patient critically ill, the [facility]iana Accu-Chek InformII metershould not be used for Glucose determinations.Draw a venous Glucose and send to the Main Lab for Analysis.
--- OUTSIDE RECORDS SUMMARY | 2019-03-18 07:25 | XMS REPORT | Summary of Care ---
Author Author [facility] Organization [facility] Address Unknown Phone Unavailable Encounter COLEMAN Urbina(JARRETT) [id number] Date(s): 01/31/16 - 01/31/16 [facility] [address] [place], [place] [phone]- [phone] Discharge Disposition: Home Attending Physician: Tio Pichardo MD Vital Signs No data available for this section Problem List Condition Effective Dates Status Health Status Informant Angina1 06/10/14 Active 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 2Data migrated from [employer] on 02/16/15. 3Data migrated from [employer] on 03/24/15. 4Data migrated from [employer] on 02/16/15. Allergies, Adverse Reactions, Alerts Substance Reaction Severity Status NKDA Active penicillins Active Medications No data available for this section Results No data available for this section Immunizations No data available for this section Procedures Procedure Date Related Diagnosis Body Site Insertion of coronary artery stent Social History Social History Type Response Smoking Status Never smoker; Concerns about tobacco use in household: No; Exposure to Tobacco Smoke None; Cigarette Smoking Last 365 Days No; Reg Smoking Cessation Counseling No Assessment and Plan No data available for this section
--- OUTSIDE RECORDS SUMMARY | 2019-03-18 07:25 | XMS REPORT | Summary of Care ---
Author Organization Unknown Address Unknown Phone Unavailable Encounter COLEMAN Urbina(JARRETT) [id number] Date(s): 12/11/14 - 12/11/14 [facility] [address] [place] [address]- [phone] Discharge Disposition: Home Physician Attending: Ayan Gaitan MD Physician_Referring: Ayan Gaitan MD Vital Signs Most recent to 1 2 oldest [Reference Range]: Height 157.48 cm 152.4 cm (12/11/14 8:29 AM) (12/10/14 2:48 PM) Blood Pressure 156/71 mmHg [90-140/60-90 mmHg] *HI* (12/11/14 9:19 AM) Respiratory Rate 10 BRMIN [14-20 BRMIN] *LOW* (12/11/14 9:19 AM) Weight 91.364 kg 91.364 kg (12/11/14 8:29 AM) (12/10/14 2:48 PM) Body Mass Index 36.84 m2 39.34 m2 (12/11/14 8:29 AM) (12/10/14 2:48 PM) Problem List Condition Effective Dates Status Health Status Informant Coronary artery Active disease(Confirmed) Diabetes Active mellitus(Confirmed) Hypercholesterolemia Active (Confirmed) Hypertension(Confirm Active ed) Allergies, Adverse Reactions, Alerts Substance Reaction Severity Status penicillins Active Medications acetaminophen 650 mg, 2 tab, Route: PO, Drug form: TAB, Q4H, Dosing Weight 91.364, kg, PRN Hea dache 1-5, Start date: 12/11/14 10:57:00, Duration: 30 day, Stop date: 01/10/15 10:56:00 Notes: Do not exceed 4 gm/day. (Same as: Tylenol) Start Date: 12/11/14 Stop Date: 12/11/14 Status: Discontinued acetaminophen-hydrocodone 325 mg-5 mg oral tablet 1 tab, Route: PO, Drug Form: TAB, Dosing Weight 91.364, kg, Q4H, PRN Pain Score 1-5, Start date: 12/11/14 10:57:00, Duration: 30 day, Stop date: 01/10/15 10:56: 00 Notes: (Same as: [place] 325/5) Do not exceed 4gm/day of acetaminophen. Start Date: 12/11/14 Stop Date: 12/11/14 Status: Discontinued Al hydroxide/Mg hydroxide/simethicone 200 mg-200 mg-20 mg/5 mL oral suspension 30 mL, Route: PO, Drug Form: SUSP, Dosing Weight 91.364, kg, Q12H, PRN Indigesti on, Start date: 12/11/14 10:57:00, Duration: 30 day, Stop date: 01/10/15 10:56:0 0 Notes: (aluminum hydroxide-magnesium hyd-simethicone [id number]/5ml 30 ml ud S ) Start Date: 12/11/14 Stop Date: 12/11/14 Status: Discontinued aspirin 81 mg, 1 tab, Route: PO, Drug form: CHEWTAB, Daily, Dosing Weight 91.364, kg, St art date: 12/12/14 9:00:00, Duration: 30 day, Stop date: 01/10/15 9:00:00 Notes: Take with food. Start Date: 12/12/14 Stop Date: 12/11/14 Status: Canceled Aspirin Low Dose 81 mg oral tablet =1 tab, PO, Daily, 0 Refill(s) Start Date: 12/11/14 Status: Ordered atorvastatin 20 mg, 1 tab, Route: PO, Drug form: TAB, Bedtime, Dosing Weight 91.364, kg, Star t date: 12/11/14 21:00:00, Duration: 30 day, Stop date: 01/09/15 21:00:00 Notes: (Same As: Lipitor) Start Date: 12/11/14 Stop Date: 12/11/14 Status: Canceled atorvastatin 20 mg oral tablet 20 mg=1 tab, PO, Bedtime, 0 Refill(s) Start Date: 12/11/14 Status: Ordered carvedilol 3.125 mg, 1 tab, Route: PO, Drug form: TAB, BID, Dosing Weight 91.364, kg, Start date: 12/11/14 17:00:00, Duration: 30 day, Stop date: 01/10/15 9:00:00 Notes: Give with food. (Same As: Coreg) Start Date: 12/11/14 Stop Date: 12/11/14 Status: Discontinued carvedilol 3.125 mg oral tablet 3.125 mg=1 tab, PO, BID, 0 Refill(s) Start Date: 12/11/14 Status: Ordered clopidogrel 75 mg, 1 tab, Route: PO, Drug form: TAB, Daily, Dosing Weight 91.364, kg, Start date: 12/12/14 9:00:00, Duration: 30 day, Stop date: 01/10/15 9:00:00 Notes: (Same As: Plavix) Start Date: 12/12/14 Stop Date: 12/11/14 Status: Canceled clopidogrel 75 mg oral tablet 75 mg=1 tab, PO, Daily, 0 Refill(s) Start Date: 12/11/14 Status: Ordered Colcrys 0.6 mg oral tablet 0.6 mg, 1 tab, Route: PO, Drug form: TAB, Daily, Dosing Weight 91.364, kg, Start date: 12/12/14 9:00:00, Duration: 30 day, Stop date: 01/10/15 9:00:00 Start Date: 12/12/14 Stop Date: 12/11/14 Status: Canceled Colcrys 0.6 mg oral tablet 0.6 mg=1 tab, PO, Daily, 0 Refill(s) Start Date: 12/11/14 Status: Ordered Diovan 160 mg, 1 tab, Route: PO, Drug form: TAB, Daily, Dosing Weight 91.364, kg, Start date: 12/12/14 9:00:00, Duration: 30 day, Stop date: 01/10/15 9:00:00 Notes: Same as Diovan Start Date: 12/12/14 Stop Date: 12/11/14 Status: Canceled Diovan 160 mg oral tablet 160 mg=1 tab, PO, Daily, 0 Refill(s) Start Date: 12/11/14 Status: Ordered glucosamine 1,500 mg, Route: PO, Daily, Dosing Weight 91.364, kg, Start date: 12/12/14 9:00: 00, Duration: 30 day, Stop date: 01/10/15 9:00:00 Start Date: 12/12/14 Stop Date: 12/11/14 Status: Deleted glucosamine 1,500 mg, PO, Daily, 0 Refill(s) Start Date: 12/11/14 Status: Ordered Humalog 20 unit, Route: SUB-Q, BID, Dosing Weight 91.364, kg, Start date: 12/11/14 17:00 :00, Duration: 30 day, Stop date: 01/10/15 9:00:00 Start Date: 12/11/14 Stop Date: 12/11/14 Status: Deleted Humalog 20 unit, SUB-Q, BID, 0 Refill(s) Start Date: 12/11/14 Status: Ordered Iron-150 oral tablet 325 mg, PO, Daily, 0 Refill(s) Start Date: 12/11/14 Status: Ordered Lantus Route: SUB-Q, Bedtime, Dosing Weight 91.364, kg, Start date: 12/11/14 21:00:00, Duration: 30 day, Stop date: 01/09/15 21:00:00 Start Date: 12/11/14 Stop Date: 12/11/14 Status: Deleted Lantus 40 units, SUB-Q, Bedtime, 0 Refill(s) Start Date: 12/11/14 Status: Ordered Levemir FlexPen 40 unit, 0.4 mL, Route: SUB-Q, Drug form: INJ, Bedtime, Start date: 12/11/14 21: 00:00, Duration: 30 day, Stop date: 01/09/15 21:00:00 Notes: Same as LevemirDo not hold insulin without contacting prescriber "single patient use only" Start Date: 12/11/14 Stop Date: 12/11/14 Status: Canceled loratadine 10 mg, 1 tab, Route: PO, Drug form: TAB, Daily, Dosing Weight 91.364, kg, Start date: 12/12/14 9:00:00, Duration: 30 day, Stop date: 01/10/15 9:00:00 Notes: 1 hr before meals (Same as: Claritin) Start Date: 12/12/14 Stop Date: 12/11/14 Status: Canceled loratadine 10 mg oral tablet 10 mg=1 tab, PO, Daily, 0 Refill(s) Start Date: 12/11/14 Status: Ordered meloxicam 15 mg, 2 tab, Route: PO, Drug form: TAB, Daily, Dosing Weight 91.364, kg, Start date: 12/12/14 9:00:00, Duration: 30 day, Stop date: 01/10/15 9:00:00 Notes: (Same as: Mobic) Start Date: 12/12/14 Stop Date: 12/11/14 Status: Canceled meloxicam 15 mg oral tablet 15 mg=1 tab, PO, Daily, 0 Refill(s) Start Date: 12/11/14 Stop Date: 12/11/14 Status: Discontinued morphine Sulfate 2 mg, 1 mL, Route: IVP, Drug form: INJ, Q15Min, Dosing Weight 91.364, kg, PRN Ch est Pain, Start date: 12/11/14 10:57:00, Duration: 2 doses or times, Stop date: Limited # of times Notes: (Same as:MORPhine Sulfate) Start Date: 12/11/14 Stop Date: 12/11/14 Status: Discontinued multivitamin 1 tab, Route: PO, Drug Form: TAB, Dosing Weight 91.364, kg, Daily, Start date: 0 12/12/14 9:00:00, Duration: 30 day, Stop date: 01/10/15 9:00:00 Notes: (Same as:Thera) Take with food. Start Date: 12/12/14 Stop Date: 12/11/14 Status: Canceled multivitamin 1 tab, PO, Daily, 0 Refill(s) Start Date: 12/11/14 Status: Ordered multivitamin with iron Route: PO, Drug Form: TAB, Dosing Weight 91.364, kg, Daily, Start date: 12/12/14 9:00:00, Duration: 30 day, Stop date: 01/10/15 9:00:00 Start Date: 12/12/14 Stop Date: 12/11/14 Status: Canceled NexIUM 40 mg, Route: PO, Drug form: ECCAP, Daily, Dosing Weight 91.364, kg, Start date: 12/12/14 9:00:00, Duration: 30 day, Stop date: 01/10/15 9:00:00 Start Date: 12/12/14 Stop Date: 12/11/14 Status: Deleted NexIUM 40 mg oral delayed release capsule 40 mg=1 cap, PO, Daily, 0 Refill(s) Start Date: 12/11/14 Status: Ordered nitroglycerin SL Tab 0.4 mg, 1 tab, Route: SL, Drug form: TAB, Q5Min, Dosing Weight 91.364, kg, PRN C hest Pain, Start date: 12/11/14 10:57:00, Duration: 3 doses or times, Stop date: Limited # of times Notes: (Same as:Nitroquick, Nitrostat)"Do Not Crush" Sublingual tablet Start Date: 12/11/14 Stop Date: 12/11/14 Status: Discontinued NovoLOG FlexPen 20 unit, 0.2 mL, Route: SUB-Q, Drug form: SOLN, BID, Start date: 12/11/14 17:00: 00, Duration: 30 day, Stop date: 01/10/15 9:00:00 Notes: Roll in palms of hands gently; Do not shake vigorously. (Same as: NovoLO G)"single patient use only" Stable for 28 days at room temperature.Expires in _ ____ days from Date Start Date: 12/11/14 Stop Date: 12/11/14 Status: Discontinued ondansetron 4 mg, 1 tab, Route: PO, Drug form: TAB, Q8H, Dosing Weight 91.364, kg, PRN Nause a & Vomiting, Start date: 12/11/14 10:57:00, Duration: 30 day, Stop date: 01/10/15 10:56:00 Notes: (Same as: Zofran) Start Date: 12/11/14 Stop Date: 12/11/14 Status: Discontinued Protonix 40 mg, 1 tab, Route: PO, Drug form: ECTAB, Before Breakfast, Start date: 5 7:30:00, Duration: 30 day, Stop date: 01/10/15 7:30:00 Notes: Tablet should not be chewed or crushed.(Same as: Protonix) Start Date: 12/12/14 Stop Date: 12/11/14 Status: Canceled sertraline 50 mg, 1 tab, Route: PO, Drug form: TAB, Daily, Dosing Weight 91.364, kg, Start date: 12/12/14 9:00:00, Duration: 30 day, Stop date: 01/10/15 9:00:00 Notes: (Same as: Zoloft) Start Date: 12/12/14 Stop Date: 12/11/14 Status: Canceled sertraline 50 mg oral tablet 50 mg=1 tab, PO, Daily, 0 Refill(s) Start Date: 12/11/14 Status: Ordered Sodium Chloride 0.9% IV 500 mL 500 mL, Rate: 125 ml/hr, Infuse over: 4 hr, Route: IV, Dosing Weight 91.364 kg, Total Volume: 500, Start date: 12/11/14 10:57:00, Duration: 30 day, Stop date: 0 01/10/15 10:56:00 Start Date: 12/11/14 Stop Date: 12/11/14 Status: Discontinued Systane Eye Drops 1 gtt, BOTH EYES, Daily, 0 Refill(s) Start Date: 12/11/14 Status: Ordered temazepam 15 mg, 1 cap, Route: PO, Drug form: CAP, Bedtime, Dosing Weight 91.364, kg, PRN Insomnia, Start date: 12/11/14 10:57:00, Duration: 30 day, Stop date: 01/10/15 1 0:56:00 Notes: (Same As: Restoril) Start Date: 12/11/14 Stop Date: 12/11/14 Status: Discontinued Tylenol Arthritis Caplet 650 mg oral tablet, extended release 650 mg=1 tab, PO, PRN, 0 Refill(s) Start Date: 12/11/14 Status: Ordered Vicodin 5 mg-300 mg oral tablet 1 tab, PO, PRN, 0 Refill(s) Start Date: 12/11/14 Status: Ordered Results ELECTROLYTES Most recent to 1 2 oldest [Reference Range]: POC Sodium [135-145 134 mEq/L mEq/L] *LOW* (12/11/14 8:15 AM) POC Potassium 4.2 mEq/L [3.5-5.1 mEq/L] (12/11/14 8:15 AM) POC Chloride [95-109 95 mEq/L mEq/L] (12/11/14 8:15 AM) POC Carbon Dioxide 24 mEq/dL [24-32 mEq/dL] (12/11/14 8:15 AM) POC AGAP [10.0-20.0 21.0 mEq/L mEq/L] *HI* (12/11/14 8:15 AM) CHEM PANEL Most recent to 1 2 oldest [Reference Range]: Creatinine Lvl 0.7 mg/dL [0.5-1.4 mg/dL] (12/11/14 11:09 AM) eGFR 87 mL/min/1.73m2 1 92 mL/min/1.73m2 2 *NA* *NA* (12/11/14 11:09 AM) (12/11/14 8:15 AM) POC Creatinine 0.6 mg/dL [0.5-1.4 mg/dL] (12/11/14 8:15 AM) POC BUN [7-22 mg/dL] 16 mg/dL (12/11/14 8:15 AM) POC Glucose [70-99 172 mg/dL mg/dL] *HI* (12/11/14 8:15 AM) POC Ion Ca 1.21 mMol/L [1.05-1.25 mMol/L] (12/11/14 8:15 AM) 1Result Comment: The eGFR is calculated using [...] be mul tiplied by the estimated BMI. HEMATOLOGY Most recent to 1 2 oldest [Reference Range]: POC Hemoglobin 11.2 g/dL [12.0-16.0 g/dL] *LOW* (12/11/14 8:15 AM) POC Hematocrit 33.0 % [36.0-48.0 %] *LOW* (12/11/14 8:15 AM) POC PT [12.0-14.7 12.8 seconds seconds] (12/11/14 8:11 AM) POC INR [0.9-1.2] 1.1 (12/11/14 8:11 AM) Immunizations No data available for this section Procedures Procedure Date Related Diagnosis Body Site Insertion of coronary artery stent Social History Social History Type Response Smoking Status Never smoker; Exposure to Tobacco Smoke None; Cigarette Smoking Last 365 Days No; Reg Smoking Cessation Counseling No Assessment and Plan No data available for this section
--- OUTSIDE RECORDS SUMMARY | 2019-03-18 07:25 | XMS REPORT | Summary of Care ---
Author Author [facility]y [facility] Unknown Address Unknown Phone Unavailable Care Team Providers Care [facility] Technician Name Role Phone KAYA Allen, ESTELLE Unavailable Unavailable SHANIQUE Allen, TRINITY Unavailable Unavailable YULIANA Allen, ANDREA Unavailable Unavailable YOGI Allen, MARCE Unavailable Unavailable GOSIA BANKS, CARLYN Kang Unavailable Unavailable ESTELLE KIRKPATRICK MD Unavailable Unavailable Unavailable Unavailable Functional Status Name Dates Details Functional status health issues are not documented Status: Name Dates Details Cognitive status health issues are not documented Status: Problems Name Dates Details Encounter for annual routine gynecological examination (V72.31, Z01.419) Status: Active Visit for screening mammogram (V76.12, Z12.31) Status: Active Female pelvic pain (625.9, R10.2) Status: Active Visit for screening mammogram (V76.12, Z12.31) Status: Active Pelvic pain in female (625.9, R10.2) Status: Active Dysuria (788.1, R30.0) Status: Active Osteoporosis screening (V82.81, Z13.820) Status: Active Calcific tendinitis of right shoulder (726.11, M75.31) Status: Active Encounter for long-term (current) use of NSAIDs (V58.64, Z79.1) Status: Active Stress incontinence (N39.3) Status: Active Generalized osteoarthritis of multiple sites (715.09, M15.9) Status: Active Rotator cuff tear arthropathy, right (716.81, M75.101) Status: Active Primary osteoarthritis of right knee (715.16, M17.11) Status: Active Chondrocalcinosis of knee (275.49, M11.269) Status: Active Chondrocalcinosis of right knee (275.49, M11.261) Status: Active Left knee pain (719.46, M25.562) Status: Active Chronic pain of both knees (719.46, M25.561) Status: Active Primary localized osteoarthritis of knees, bilateral (715.16, M17.0) Status: Active Medications Name Dates Details Diovan 160 MG Oral Tablet TAKE 1 TABLET DAILY Active Tylenol CAPS TAKE TABLET NEEDED * Refills: 0 Active Pravastatin Sodium 40 MG Oral Tablet TAKE 1 TABLET DAILY. * Refills: 0 Active Colchicine 0.6 MG Oral Tablet TAKE 1 TABLET DAILY * Quantity: 30 Refills: 5 ANDREA BRIDGES M.D. Active NexIUM 40 MG Oral Capsule Delayed Release TAKE 1 CAPSULE DAILY. * Quantity: 30 Refills: 3 ANDREA BRIDGES M.D. Active Lantus SOLN USE DIRECTED. * Refills: 0 Active NovoLOG SOLN INJECT SUBCUTANEOUSLY DIRECTED. * Refills: 0 Active Physical Therapy Please evaluate and treat for knee pain b/l. Two times per week for 6 weeks. * Quantity: 1 Refills: 0 ESTELLE KIRKPATRICK M.D. * Start : 30-Mar-2014 Active Diclofenac Sodium 1 % Transdermal Gel APPLY 4 GM OF GEL TO AFFECTED AREA 2 TIMES DAILY. DO NOT APPLY MORE THAN 16 GM DAILY TO ANY ONE AFFECTED JOINT. * Quantity: 3 Refills: 0 ESTELLE KIRKPATRICK M.D. * Start : 02-Sep-2014 Active 100 GM Tube Loratadine 10 MG Oral Tablet TAKE 1 TABLET DAILY. * Refills: 0 * Start : 09-Dec-2014 Active Clopidogrel Bisulfate 75 MG Oral Tablet TAKE TABLET DAILY * Refills: 0 * Start : 09-Dec-2014 Active Sertraline HCl - 50 MG Oral Tablet TAKE 1 TABLET DAILY. * Refills: 0 * Start : 09-Dec-2014 Active Carvedilol 3.125 MG Oral Tablet TAKE 1 TABLET DAILY * Refills: 0 * Start : 09-Dec-2014 Active Nitrostat 0.4 MG Sublingual Tablet Sublingual * Refills: 0 Active Meloxicam 7.5 MG Oral Tablet TAKE 1 TABLET DAILY NEEDED. * Quantity: 30 Refills: 1 ANDREA BRIDGES M.D. * Start : 31-Jan-2016 Active Dicyclomine HCl 20 MG CAPS TAKE 1 CAPSULE 4 TIMES DAILY. * Refills: 0 Active Ondansetron HCl - 4 MG Oral Tablet TAKE TABLET * Refills: 0 Active Meloxicam 15 MG Oral Tablet TAKE 1 TABLET DAILY. * Quantity: 30 Refills: 1 MARCE CALIX M.D. * Start : 26-Jun-2018 Active Allergies and Adverse Reactions Name Dates Details Bactrim DS TABS (Allergy) Status: Active Past Medical History Name Dates Details History of Chronic hypertension (401.9, I10) Status: Resolved History of Diabetes (250.00, E11.9) Status: Resolved History of Diabetes mellitus without complication (250.00, E11.9) Status: Resolved History of herpes simplex type 2 infection (V12.09, Z86.19) Status: Resolved History of High blood pressure (401.9, I10) Status: Resolved History of hyperlipidemia (V12.29, Z86.39) Status: Resolved Procedures Procedure Dates Details Physical Therapy Date: 26-Jun-2018 History of Cardiac Cath In-Lab Complications: Completed Immunization Name Dates Details Immunizations not documented Family History Name Dates Details No pertinent family history (V49.89, Z78.9) Status: Active Social History Name Dates Details - Status: Name Dates Details Never smoker Vital Signs Date Test Result Details No Known Vitals to report Results Date Description Value Details [id number] [U] XRAY ELBOW MIN 3 VWS RIGHT [id number] XR ELBOW MIN 3 VWS RIGHT Images acquired, not reported on this accession number. Plan of Care Name Dates Details Planned Observations Planned Goals not documented Interventions Provided Labs/Procedures/Imaging* [U] XRAY ELBOW MIN 3 VWS RIGHT [id number]; Done: 22 Aug 2018 Instructions Name Dates Details Instructions not documented Encounters Appointment; ESTELLE KIRKPATRICK M.D. Encounter Diagnosis: Problem not documented On: 25-Oct-2016 10:30 Appointment; ESTELLE KIRKPATRICK M.D. Encounter Diagnosis: Problem not documented On: 22-Oct-2017 9:30 Appointment; ESTELLE KIRKPATRICK M.D. Encounter Diagnosis: Problem not documented On: 17-Dec-2017 9:00 Appointment; MARCE CALIX M.D. Encounter Diagnosis: Problem not documented On: 06-Feb-2018 11:00 Appointment; MARCE CALIX M.D. Encounter Diagnosis: Problem not documented On: 26-Feb-2018 9:00 Appointment; TRINITY BAY M.D. Encounter Diagnosis: Problem not documented On: 26-Mar-2018 14:45 Appointment; TRINITY BAY M.D. Encounter Diagnosis: Problem not documented On: 30-Apr-2018 14:45 Appointment; TRINITY BAY M.D. Encounter Diagnosis: Problem not documented On: 30-Apr-2018 14:45 Appointment; TRINITY BAY M.D. Encounter Diagnosis: Problem not documented On: 06-Jun-2018 12:00 Appointment; TRINITY BAY M.D. Encounter Diagnosis: Problem not documented On: 06-Jun-2018 13:30 Appointment; MARCE CALIX M.D. Encounter Diagnosis: Problem not documented On: 26-Jun-2018 8:45 Appointment; TRINITY BAY M.D. Encounter Diagnosis: Problem not documented On: 02-Jul-2018 8:30 Appointment; TRINITY ABY M.D. Encounter Diagnosis: Problem not documented On: 08-Jul-2018 8:30 Appointment; HERO BERRIOS M.D. Encounter Diagnosis: Problem not documented On: 22-Jul-2018 10:00 Appointment; TRINITY BAY M.D. Encounter Diagnosis: Problem not documented On: 22-Aug-2018 13:45
--- OUTSIDE RECORDS SUMMARY | 2019-03-18 07:25 | XMS REPORT | Summary of Care ---
Author Author [facility] [place] Organization [facility] [place] Address Unknown Phone Unavailable Encounter COLEMAN Urbina(JARRETT) [id number] Date(s): 01/02/17 - 01/02/17 [facility] [place] [address] [place] [phone] Discharge Disposition: Home or Self Care Attending Physician: Ailyn Argueta MD Vital Signs No [...]
--- OUTSIDE RECORDS SUMMARY | 2019-03-18 07:25 | XMS REPORT | Summary of Care ---
Author Author [facility] [place] Organization [facility] [place] Address Unknown Phone Unavailable Encounter COLEMAN Urbina(JARRETT) [id number] Date(s): 10/20/15 - 10/20/[address] [facility] [place] [address] [place], [place] [phone] Discharge Disposition: Home Attending Physician: Mike Walh MD Vital Signs No data available for this section Problem List Condition Effective Dates Status Health Status Informant Angina1 06/10/14 Active Angina associated Resolved with type 2 diabetes mellitus(Confirmed) Benign hypertension2 06/10/14 Active Chest pain3 02/02/15 Active Coronary artery Active disease(Confirmed) Diabetes(Confirmed) Resolved Diabetes Active mellitus(Confirmed) Hypercholesterolemia Active (Confirmed) Hyperlipidemia(Confi Resolved rmed) Hypertension(Confirm [...]
--- OUTSIDE RECORDS SUMMARY | 2019-03-18 07:25 | XMS REPORT | Summary of Care ---
Author Author [facility] [place] Organization [facility] [place] Address Unknown Phone Unavailable Encounter [facility] Lydiar_debbie(FIN) [id number] Date(s): 05/31/15 - 05/31/15 [facility] [place] [address] [place] [phone] Discharge Disposition: Home Attending Physician: Tio Pichardo [...]
[2019-03-18 09:15] VITALS: BP 138/78
== END | disposition home or self-care (01) ==
LOC: OR 07:07
PROVIDERS: ATTEND Internal Medicine Gastroenterology
DX: R10.12 Left upper quadrant pain (principal); K31.89 Other diseases of stomach and duodenum; K59.00 Constipation, unspecified; K21.9 Gastro-esophageal reflux disease without esophagitis; I25.10 Atherosclerotic heart disease of native coronary artery without angina pectoris; I25.2 Old myocardial infarction; E78.5 Hyperlipidemia, unspecified; E11.9 Type 2 diabetes mellitus without complications; N39.0 Urinary tract infection, site not specified; J45.909 Unspecified asthma, uncomplicated; F41.9 Anxiety disorder, unspecified; F32.9 Major depressive disorder, single episode, unspecified; Z88.0 Allergy status to penicillin; Z01.810 Encounter for preprocedural cardiovascular examination; Z01.812 Encounter for preprocedural laboratory examination; Z79.84 Long term (current) use of oral hypoglycemic drugs; Z79.02 Long term (current) use of antithrombotics/antiplatelets; Z79.82 Long term (current) use of aspirin; Z79.4 Long term (current) use of insulin; Z68.39 Body mass index [BMI] 39.0-39.9, adult; Z95.5 Presence of coronary angioplasty implant and graft
CPT/HCPCS: 36415 ×2; 43235; 82948; 85025; 93005; J2250; J2704; J3010